=== PATIENT | female | born 1950 | race Caucasian/White ===

== ENCOUNTER → 2018-06-06 | Outpatient (CLI) | payer OTHER ==
[~2018-06-06] MED LIST: ASPI81TA28 PO; BIOT1CAP8 PO; CARV20CA PO; CRFL PO; GLC/500 PO; GLIM2TAB2 PO; HYDR12.55 PO; INSUINJ4 SQ; NXM/40 PO; OMEG10007 PO; [UNRECOGNIZED DRUG - OTHER] PO
--- NOTE | 2018-06-06 12:13 | DIAGNOSTIC IMAGING REPORT ---
ULTRASOUND RIGHT UPPER QUADRANT ABDOMEN CLINICAL HISTORY: Nausea. Generalized abdominal pain. History of stage IV ovarian cancer. COMPARISON STUDY: Abdominal CT dated 12/17/2015. TECHNIQUE: Real-time, grayscale, and color flow sonography of the right upper quadrant of the abdomen was performed. Images are reviewed in the transverse and longitudinal planes. FINDINGS: Liver: The liver is normal in size and heterogeneous in echotexture. There is nodularity of the hepatic surface contour indicating early change of cirrhosis. There is no intrahepatic biliary ductal dilatation. The main portal vein is patent. Gallbladder: There are numerous shadowing calcified gallstones. There is no gallbladder wall thickening or pericholecystic fluid. A sonographic Huertas's sign is reportedly absent. The common bile duct measures up to 0.9 cm in diameter. Pancreas: Visualized portions of the pancreatic head and body are normal in appearance. The splenic vein is patent. Right kidney: Survey images of the right kidney demonstrate mild cortical atrophy. There is no hydronephrosis. Ascites: None. IMPRESSION: 1. Cholelithiasis without sonographic evidence of acute cholecystitis. 2. Cirrhotic liver morphology. Electronically signed by: Suraj Beltre M.D. 06/06/2018 12:12 PM Dictated Date/Time: 06/06/2018 12:10 PM
== END | disposition home or self-care (01) ==
LOC: C.ULTR 11:06
PROVIDERS: ATTEND Surgery
DX: R11.0 Nausea (principal); R10.9 Unspecified abdominal pain

== ENCOUNTER 2018-12-04 01:45 | Inpatient (IN) ==
[2018-12-04] MEDS ORDERED: ICU ELECTROLYTE REPLACEMENT PROTOCOL PRN (10:23)
[2018-12-04] MEDS ORDERED: ICU PROTOCOL FOR HYPERGLYCEMIA PRN (10:23)
[2018-12-04] MEDS ORDERED: VANCOMYCIN CONSULT ACTIVE PRN (10:27)
[2018-12-04] MEDS ORDERED: PIPERACILL/TAZOBAC CONSULT ACTIVE PRN (10:27)
[2018-12-04 11:13] LABS: Albumin Level 1.9 gm/dl (3.4-5.0); BUN Creatinine Ratio 16.1 (10-20); Creatinine Clr Calc Pharmacy 34.1 ml/min; Est GFR (African American) 38.9; Est GFR (Non-African American) 33.5; Magnesium 1.3 mg/dl (1.8-2.4); Potassium 3.1 mmol/L (3.5-5.1)
[2018-12-04] MEDS ORDERED: VANCOMYCIN HCL 1,250 MG in SODIUM CHLORIDE 0.9% 250 ML IV ONE (11:15)
[2018-12-04] MEDS ORDERED: PIPERACILLIN/TAZOBACTAM 4.5 GM in DEXTROSE 5% 100 ML IV ONE (11:15)
[2018-12-04 11:21] LABS: Albumin Globulin Ratio 0.6 (0.9-2); Bilirubin,Total 1.6 mg/dl (0.2-1); Globulin 3.3 gm/dl (2.5-4.0); Hematocrit (blood only) 26.6 % (37-47); Hemoglobin 8.9 g/dL (12.0-16.0); Mean Corpuscular Hgb Conc 33.5 g/dL (32-36); Mean Corpuscular Volume 89.9 fL (80-100); Platelet Count 11 K/uL (130-400); RDW Coefficient of Variation 17.1 % (11.5-14.5); RDW Standard Deviation 56.5 fL (36.4-46.3); Red Blood Count 2.96 M/uL (4.2-5.4); Total Protein 5.2 gm/dl (6.4-8.2); Troponin I 0.049 ng/ml (0-0.045); White Blood Count 0.64 K/uL (4.8-10.8)
[2018-12-04] MEDS: NSS + 20MEQ KCL 20 MEQ/1,000 ML BAG IV SCH ×2 (11:40→21:09)
[2018-12-04] MEDS ORDERED: SODIUM CHLORIDE 0.9% 500 ML IV SCH (11:45)
[2018-12-04] MEDS ORDERED: POTASSIUM CHLORIDE 20 MEQ TABCR PO STA (11:52)
[2018-12-04] MEDS ORDERED: POTASSIUM CHLORIDE 20 MEQ TABCR PO SCH (11:52)
--- NOTE | 2018-12-04 11:55 | Critical Care Consultation ---
Date of Consultation December 04, 2018 Assessment & Plan (1) Ovarian cancer: Impression: 1. Advanced stage ovarian cancer, rising CEA noted. Status post chemotherapy with carboplatin, Taxol and Avastin every 3 weeks. 2. Pancytopenia with febrile neutropenia. 3. Profound thrombocytopenia secondary to chemotherapy. 4. Acute on chronic kidney disease. 5. Non-ST elevation [place] related to sepsis. 6. Sepsis, etiology is pending, blood cultures are positive for gram-positive cocci. 7. Diabetes, on metformin and glimepiride at home. Both on hold. 8. History of hypertension. 9. History of pacemaker placement, Port-A-Cath in the left subclavian. 10. Diarrhea, could be related to activated C. difficile versus chemo induced enteropathy. Plan: 1. I will start the patient on vancomycin and Zosyn. 2. I would consider adding caspofungin if she continued to have fever. 3. IV fluid. 4. Start Neupogen 480 mics subcu daily. 5. Oncology consult. 6. Obtain echocardiogram considering the patient's cardiac history and a pacemaker in place. 7. Obtain C. difficile antigen. 8. Possible diarrhea secondary to enteropathy. 9. The patient remains full code. 10. Discontinue home aspirin. 11. Type and cross the patient, no transfusion for now. 12. Repeat the labs in the afternoon. 13. If the patient platelets continue to drift down, I will transfuse her empirically. 15. Glucose control. 16. Clear liquid diet if possible. 17. No need for pressors at this point. 18. Replete all electrolytes. 19. Discussed with the staff on rounds, critical care time spent with the patient was 60 minutes. 3. History of Present Illness Reason for Consultation: Febrile neutropenia Requesting Physician: Dr. Jimenez Attending Physician: Scot Jimenez MD History of Present Illness Dear Dr. Jimenez: Thank you for your kind referral of Mrs. Mejia to critical care service. This is 68-year-old female with a history of ovarian cancer status post oophorectomy 10 years ago, recently has been diagnosed with recurrence of ovarian cancer and started on chemotherapy, she has been getting the chemotherapy every 3 weeks with carboplatin, Taxol, Avastin. Most recent chemotherapy was this week. The patient presented after she received the chemotherapy with weakness, fever and altered mental status to MARLEN[facility] Calvin. The patient was found to be neutropenic, pancultured and started empirically on broad-spectrum antibiotics, the patient blood pressure has been maintained although she has been receiving fluid, she was transferred to our institution for further management. When I interviewed the patient, she denies any pain, she appears chronically ill , pale, denies any chest pain, no shortness of breath, no cough or hemoptysis, she does have bloodstained secretions in her mouth. She denies any constipation but she did have diarrhea approximately 6 times reported by the nursing staff as watery. Nonbloody. No new rash, no skin changes noted, the patient does have mild edema in 4 extremities., No abdominal pain no nausea or vomiting reported. No loss of consciousness. The rest of her review of system was unremarkable. Her family history does not contribute to her current illness. 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 Patient is ex-smoker quit over 10 years ago. Allergies Allergy/AdvReac Type Severity Reaction Status Date / Time cefaclor AdvReac Mild Yeast Verified 07/16/18 05:59 Infection pioglitazone AdvReac Mild Leg Verified 07/16/18 05:59 Swelling rosiglitazone AdvReac Mild Leg Verified 07/16/18 05:59 Swelling shrimp AdvReac Mild NAUSEA/VOMI Verified 07/16/18 05:59 TING Home Medications Home Medications Medication Instructions Recorded Confirmed Type aspirin 81 mg PO QAM 07/07/18 07/16/18 History atorvastatin 20 mg PO HS 07/07/18 07/16/18 History calcium carbonate-vitamin D3 1 tab PO QAM 07/07/18 07/16/18 History [Os-Ilia 500 + D3] carvedilol 3.125 mg PO BID 07/07/18 07/16/18 History cholecalciferol (vitamin D3) 1,000 unit PO QPM 07/07/18 07/16/18 History [Vitamin D3] estradiol [Vagifem] 10 mcg VAGINAL 2XWK 07/07/18 07/16/18 History fish,bora,flax oils-om3,6,9no1 1 cap PO QAM 07/07/18 07/16/18 History [[place] 3-6-9] furosemide 40 mg PO UD 07/07/18 07/16/18 History glimepiride 2 mg PO HS 07/07/18 07/16/18 History iron,carbonyl-vitamin C [Vitron-C] 1 tab PO DAILY 07/07/18 07/16/18 History lactobacillus combination no.4 3,000 mmu cells PO DAILY 07/07/18 07/16/18 History [Probiotic] lisinopril 10 mg PO QAM 07/07/18 07/16/18 History metformin 1,000 mg PO BID 07/07/18 07/16/18 History omeprazole 40 mg PO QPM 07/07/18 07/16/18 History Tylenol See Label Instructions .ROUTE 07/16/18 07/16/18 History .COMPLEX PRN Patient History Medical History Anxiety Cancer DX 2004 W/ OVARIAN CA - S/P GREGG BSO - 2014 CA TO LT SUPRACLAVICULAR LYMPH NODE - S/P CHEMO - DX 05/2018 - RETURN TO LYMPH NODES (WILL BE TREATED W/ CHEMO) Cholelithiases Congestive heart failure chronic diastolic Diabetes mellitus, type 2 GERD (gastroesophageal reflux disease) Hiatal hernia Hyperlipidemia Hypertension Nonrheumatic aortic (valve) stenosis Noted in cardio note...but normal trileaflet aortic valve noted on 11/2016 [place]. Osteoarthritis Pacemaker BRADYCARDIA - 04/2017 - LAST CHECKED 06/18/18 - [place] - FOLLOWS W/ DR. SMALLS Valvular disease Moderate mitral regurg, mild-moderate tricuspid regurg. Surgical History History of bilateral tubal ligation History of cardiac cath 10/2014 - [place] - ABN STRESS TEST - NO ANGIOPLASTY/STENT History of carpal tunnel release of both wrists History of herniorrhaphy S/P GREGG-BSO Social History Current Living Situation: Spouse Feels Safe at Home: Yes Smoking Status: Former smoker Second Hand Exposure: Yes Hx Alcohol Use: No Hx Substance Use: No Beliefs That Will Affect Care: None Preferred Language: Hungarian Communication Ability: Effective Review of Systems 14 systems has been reviewed, apart from the above in the first section, it was unremarkable. Physical Exam 2 Vital Signs (Past 24 Hours): Last Vital Signs Temp 37.7 C H 12/04/18 08:56 Pulse 86 12/04/18 10:30 Resp 20 12/04/18 08:56 BP 115/66 12/04/18 10:00 Pulse Ox 97 12/04/18 10:30 Physical Exam: The patient had a fever 102.3, her blood pressure was soft and borderline but did not require any pressors, trachea is midline, blood tinged secretions in her lips, oral mucosa appears dry, no JVD, distant breath sounds bilaterally, abdomen is benign, edema in the periphery, no rash, neurologically she does not seem to be focal but slow to response. Results & Data Laboratory Results Her laboratories were consistent with aguilar cytopenia, BUN and creatinine slightly elevated, positive troponin likely secondary to above, cultures are still pending. Diagnostic Findings Imaging were reviewed since June, personally, she does have lymphadenopathy , pacemaker in place, small pleural effusion on the right, multiple nodularity in the apices of the lung.
[2018-12-04 12:03] LABS: ALC (manual) 0.52 K/uL (1.2-3.4); Basophils # (manual) 0.01 K/uL (0-0.2); Eosinophils # (manual) 0.01 K/uL (0-0.5); Giant Platelets 3+; Lymphocytes # (manual) 0.52 K/uL (1.2-3.4); Monocytes # (manual) 0.04 K/uL (0.11-0.59); Smudge Cells Present; Toxic Granulation 1+
--- NOTE | 2018-12-04 13:37 | Pharmacy Report ---
Pharmacy Abx Dose Short Note - Date of Service December 04, 2018 - Assessment & Plan Assessment * 68 year old F transferred from [facility] due to fever, MS changes, dehydration due to NVD, febrile neutropenia * Pt has h/o ovarian cancer, was chemo treatment 11/26 (carboplatin, paclitaxel, bevacizumab) * Neutrophil cnt: 60 * HANS present on labs and appears to have worsened over last 24 hrs (SCr 1.3 -- > 1.57); eCrCl 30-40cc/min; baseline SCr uncertain * MAP's 70's earlier, but now in 50's via NIBP, SBP 80's * Fluid resuscitation continues at this time * [facility] BLCX's reported to be growing gram positive bacilli in anaerobic cx * C diff screen negative * Port-A-cath in place Plan Vancomycin * 1000mg given prior to transfer, however was given 12/03 @ 1912 - calc serum level most certainly < 15 at this time - will begin maint dose now * Maint dose: 1250mg (~15mg/kg) IV Q 24 hrs * Goal trough level for sepsis / bacteremia : 15 to 20 mcg/mL * Will check trough w/ 3rd dose if therapy to continue Zosyn * Last dose: 4.5gm x 1 12/03 @2107 * eCrCl > 20cc/min; BMI > 35; critical illness: 4.5gm load x 1, then begin 4.5gm ext-infusion Q 8 hrs Pharmacy will continue to follow and will adjust dose/frequency as necessary. Thank you.
[2018-12-04] MEDS: MAGNESIUM SULFATE / D5W 1 GM/100 ML BAG IV SCH ×2 (15:21→17:20)
[2018-12-04] MEDS: FILGRASTIM 480 MCG/1.6 ML VIAL SC SCH (15:43)
[2018-12-04] MEDS: PIPERACILLIN/TAZOBACTAM 4.5 GM in DEXTROSE 5% 100 ML IV SCH ×2 (15:49→23:22)
--- NOTE | 2018-12-04 17:15 | History & Physical Report ---
Date of Service December 04, 2018 Assessment & Plan (1) Febrile neutropenia: This chemotherapy associated febrile neutropenia. Patient was initiated on vancomycin and Zosyn these will be continued. Because of patient's diarrhea C. difficile test will be collected initially her blood pressure was low her lactic acid was not significantly elevated the patient will be continued on neutropenic precautions antibiotics to be administered (2) Pancytopenia: Hemotherapy associated pancytopenia. Platelet count is at 16. The patient has any significant bleeding that continues we will transfuse platelets. Consideration of rescuing her bone marrow if discussion needed will consult Dr. Bang (3) Diabetes mellitus, type 2: Patient will be on the ICU diabetic protocol we will hold her typical glimepiride metformin (4) Hypertension: Patient has some history of coronary disease she is typically on aspirin atorvastatin Coreg and Lasix plus lisinopril 10 these were all held (5) Diarrhea: As mentioned patient is volume loss of the diarrhea will have a C. difficile toxin sent we will employ intravenous fluid hydration continue potassium due to hyper hypokalemia present on admission (6) DVT prophylaxis: Chemoprophylaxis is contraindicated with the patient's thrombocytopenia likely external device may promote bruising History of Present Illness Primary Care Provider: Rell Carballo Capp, DO Patient is transferred from [facility]. The patient is a 60-year-old female has metastatic ovarian cancer. She is receiving chemotherapy of Doxil plan carboplatin and Avastin. Her last chemotherapy was 413. The patient presents at [facility] with a febrile illness and encephalopathy. She was initially stabilized in the emergency department given vancomycin and Zosyn. She did have a imaging of her chest showing bilateral apical masses which look to be progressive from previous imaging at their facility. She is pancytopenic with a white count of 0.4 and a platelet count of 16 been hemoglobin of 10 she is hypokalemic mild elevation of her bilirubin Upon arrival she is in mild distress she is having liquidy diarrhea she has a large clot on her lip no active bleeding was seen Allergies Allergy/AdvReac Type Severity Reaction Status Date / Time cefaclor AdvReac Mild Yeast Verified 07/16/18 05:59 Infection pioglitazone AdvReac Mild Leg Verified 07/16/18 05:59 Swelling rosiglitazone AdvReac Mild Leg Verified 07/16/18 05:59 Swelling shrimp AdvReac Mild NAUSEA/VOMI Verified 07/16/18 05:59 TING Home Medications Home Medications Medication Instructions Recorded Confirmed Type aspirin 81 mg PO QAM 07/07/18 07/16/18 History atorvastatin 20 mg PO HS 07/07/18 07/16/18 History calcium carbonate-vitamin D3 1 tab PO QAM 07/07/18 07/16/18 History [Os-Ilia 500 + D3] carvedilol 3.125 mg PO BID 07/07/18 07/16/18 History cholecalciferol (vitamin D3) 1,000 unit PO QPM 07/07/18 07/16/18 History [Vitamin D3] estradiol [Vagifem] 10 mcg VAGINAL 2XWK 07/07/18 07/16/18 History fish,bora,flax oils-om3,6,9no1 1 cap PO QAM 07/07/18 07/16/18 History [[place] 3-6-9] furosemide 40 mg PO UD 07/07/18 07/16/18 History glimepiride 2 mg PO HS 07/07/18 07/16/18 History iron,carbonyl-vitamin C [Vitron-C] 1 tab PO DAILY 07/07/18 07/16/18 History lactobacillus combination no.4 3,000 mmu cells PO DAILY 07/07/18 07/16/18 History [Probiotic] lisinopril 10 mg PO QAM 07/07/18 07/16/18 History metformin 1,000 mg PO BID 07/07/18 07/16/18 History omeprazole 40 mg PO QPM 07/07/18 07/16/18 History Tylenol See Label Instructions .ROUTE 07/16/18 07/16/18 History .COMPLEX PRN Past Med/Surg History Social History Current Living Situation: Spouse Feels Safe at Home: Yes Smoking Status: Former smoker Second Hand Exposure: Yes Hx Alcohol Use: No Hx Substance Use: No Beliefs That Will Affect Care: None Preferred Language: [place] Citizen Communication Ability: Effective Review of Systems ROS: Alopecic and fatigued No double vision blurry vision Painful mouth painful swallowing No palpitations, chest pain or pressure No Wheezing dyspnea at rest on exertion No abdominal pain nausea vomiting, persistent diarrhea No burning urine urine frequency or changes in color No focal joint pain or muscle pain No skin rashes she has a scab on her gums and lips from some bleeding previouslyr loss of strength Was confused on presentation Physical Exam 2 Vital Signs (Past 24 Hours): Last Vital Signs Temp 36.9 C 12/04/18 16:00 Pulse 77 12/04/18 16:00 Resp 20 12/04/18 08:56 BP 105/61 12/04/18 16:00 Pulse Ox 97 12/04/18 16:00 The patient appeared she has alopecia she is pale she is confused Vital signs as documented. Head exam is unremarkable. normocephalic, atraumatic Oropharynx with signs of gingival bleeding which is controlled Neck is without jugular venous distension, thyromegaly, or lymphademopathy Lungs are coarse breath sounds at the bases Cardiac exam reveals Rhythm is regular. Systolic ejection murmur Abdominal exam reveals normal bowel sounds, no masses, no organomegaly Extremities are mildly edematous and both pedal pulses are present Neurologic exam is A&Ox2, no focal deficits, strength is equal bilateral
[2018-12-04] MEDS: PANTOprazole 40 MG TAB PO SCH (21:08)
[2018-12-05 04:42] LABS: BUN Creatinine Ratio 14.8 (10-20); Calcium 7.8 mg/dl (8.5-10.1); Creatinine Clr Calc Pharmacy 35.9 ml/min; Est GFR (African American) 41.4; Est GFR (Non-African American) 35.7; Magnesium 1.9 mg/dl (1.8-2.4); Potassium 3.5 mmol/L (3.5-5.1)
[2018-12-05 05:32] LABS: Hematocrit (blood only) 26.9 % (37-47); Hemoglobin 8.8 g/dL (12.0-16.0); Mean Corpuscular Hgb Conc 32.7 g/dL (32-36); Mean Corpuscular Volume 90.9 fL (80-100); Platelet Count 14 K/uL (130-400); RDW Standard Deviation 56.6 fL (36.4-46.3); Red Blood Count 2.96 M/uL (4.2-5.4); White Blood Count 1.61 K/uL (4.8-10.8)
[2018-12-05] MEDS ORDERED: DEXTROSE 50% 50 ML SYRINGE IV ONE (05:40)
[2018-12-05 05:44] LABS: Basophils # (auto) 0.01 K/uL (0-0.2); Basophils % (auto) 0.6 %; Eosinophils # (auto) 0.01 K/uL (0-0.5); Eosinophils % (auto) 0.6 %; Lymphocytes # (auto) 0.51 K/uL (1.2-3.4); Lymphocytes % (auto) 31.7 %; Monocytes % (auto) 24.8 %; Neutrophils # (auto) 0.68 K/uL (1.4-6.5); Neutrophils % (auto) 42.3 %
[2018-12-05 05:49] LABS: Giant Platelets 1+; Ovalocytes 1+; Platelet Estimate SIGNIFIC DECREASED (Normal); Toxic Granulation 1+
[2018-12-05] MEDS: NSS + 20MEQ KCL 20 MEQ/1,000 ML BAG IV SCH ×2 (08:07→18:24)
[2018-12-05] MEDS: PIPERACILLIN/TAZOBACTAM 4.5 GM in DEXTROSE 5% 100 ML IV SCH (08:08)
[2018-12-05] MEDS: FILGRASTIM 480 MCG/1.6 ML VIAL SC SCH (08:08)
[2018-12-05] MEDS: PANTOprazole 40 MG TAB PO SCH ×2 (08:39→21:04)
--- NOTE | 2018-12-05 10:35 | Consultation Report ---
DATE OF CONSULTATION: 12/05/2018 MEDICAL ONCOLOGY CONSULTATION REASON FOR CONSULTATION: Neutropenic fever in this pleasant 68-year-old female patient with metastatic ovarian cancer. HISTORY OF PRESENT ILLNESS: The patient is a pleasant, but unfortunate 68-year-old female patient well known to [facility] under my care for metastatic ovarian cancer. The patient has been receiving combination of Doxil, carboplatin and Avastin and was in the midst of her fourth cycle that she received back on 11/26/2018. At that time, her counts were below normal; however, certainly not at a critical point requiring a delay. Her doses have been adjusted across the board throughout her course of chemotherapy because of poor tolerance. She was last seen by WILI Landrum, on 11/05/2018, at which time she was poised to begin her fourth cycle which was delayed until today because of chemotherapy and tolerance (anorexia, asthenia, dyschezia, and stomatitis) warranting a break from treatment. We had also recommended 25% dose reduction in the paclitaxel and reduced her carboplatin from an AUC of 5 to an AUC of 4. At this time, she felt recovered enough to receive her treatment which took place. Unfortunately, radiographic studies done at [facility] suggest disease progression. Her CA-125 has also risen precipitously and therefore need to consider a change in therapy when the patient recovers. Right now, she is currently suffering from severe mucositis and is receiving broad spectrum antibiotics for a suspected bacteremia. Blood cultures are pending at time of dictation. I did briefly speak to the race relations adviser, who updated me on the patient's care. PAST MEDICAL HISTORY: Significant for metastatic ovarian cancer. HOME MEDICATIONS: Aspirin 81 mg p.o. daily, atorvastatin 20 mg p.o. at bedtime, calcium carbonate with vitamin D 1 tablet p.o. daily, carvedilol 3.125 mg p.o. b.i.d., cholecalciferol 1000 units p.o. q.p.m., estradiol vaginal cream 10 mcg applied twice weekly, furosemide 40 mg p.o. daily, ____ 2 mg p.o. at bedtime, lactobacillus 3000 ____ p.o. daily, lisinopril 10 mg p.o. daily, metformin 1000 mg p.o. b.i.d., omeprazole 40 mg p.o. daily, iron tablet 1 p.o. daily, Tylenol as needed. ALLERGIES: ____, PIOGLITAZONE, ROSIGLITAZONE AND SHRIMP. SOCIAL HISTORY: The patient is retired, , lives with her . She is a reformed smoker. Negative for alcohol or illicit drugs. FAMILY HISTORY: Noncontributory. REVIEW OF SYSTEMS: As per HPI, most notably for decline in performance status, fevers, chills, stomatitis. HEENT: Negative for headaches, lightheadedness or dizziness. She denies any acute visual or hearing deficits. No sinus symptoms. Positive for sore throat and stomatitis. NECK/LYMPH: No history of lymphoproliferative disease. CARDIAC: No current angina or palpitations. PULMONARY: She is not short of breath, dyspneic or orthopneic. She is receiving supplemental oxygen. GASTROINTESTINAL: Denies current nausea. No abdominal pain, no diarrhea or constipation, hematochezia or melena stools. GENITOURINARY: No hematuria, dysuria, urinary incontinence. PSYCHIATRIC: No history of depression or psychoses. ENDOCRINE: Negative for thyroid disease. Positive for type 2 diabetes mellitus. NEUROLOGIC: Negative for seizure, stroke or migraine headache. HEMATOLOGIC: Positive for pancytopenia. PHYSICAL EXAMINATION: GENERAL: Ill-appearing 68-year-old female patient, in no acute distress. VITAL SIGNS: Temperature 36.4, pulse 76, respiratory rate 18, blood pressure 91/59. SKIN: Warm, dry, noncyanotic without petechia, rash or ecchymosis. HEENT: Head is atraumatic. Positive for alopecia. Normocephalic. Eyes: PERRLA, EOMI. Sclerae nonicteric. Nares are patent. Throat: White streaks intermixed with erythema, consistent with mucositis. NECK: Supple. HEART: Regular rate and rhythm. No clicks, rubs, murmurs or gallops. LUNGS: Clear to auscultation bilaterally. ABDOMEN: Soft, nontender, nondistended without palpable hepatosplenomegaly. EXTREMITIES: No calf tenderness or swelling. Pneumatics in place. NEUROLOGICAL: She is awake, alert and oriented x3. Cranial nerves are intact. LABORATORY DATA: WBC count 1610, hemoglobin 8.8, platelet count 14,000, neutrophil count 680. Sodium 141, potassium 3.5, chloride 108, carbon dioxide 25, BUN 22, creatinine 1.49, albumin 1.9, precalcitonin 10.15. IMPRESSION: 1. Neutropenic fever. 2. Pancytopenia attributable to chemotherapeutic effect. 3. Hypoalbuminemia. 4. Type 2 diabetes mellitus. 5. Metastatic ovarian cancer. PLAN: The patient is a very pleasant 68-year-old female patient well known to [facility] battling end-stage metastatic ovarian cancer. The patient continues to receive carboplatin, paclitaxel and Avastin. She has completed her fourth cycle recently, which was delayed because of difficulties. Despite dose reductions, the patient continues to have problems and radiographically, it would appear she is progressing which is also corroborated by increasing CA-125. Therefore, we will suspend her current regimen for ineffectiveness and poor tolerance. Once the patient recovers, we will reconvene as outpatient and discuss therapeutic options moving forward. I have nothing to add in regards to her current management other than continuing transfusional support. If platelets fall below 15,000, proceed with single donor pheresis. Provide granulocyte colony stimulating growth factor, perhaps Neupogen 480 mcg x1 dose. Agree with current antimicrobial therapy and we will wait for sensitivities. Mucositis can be treated locally with local compounds as well as low dose opioids per the patient's comfort. Thank you very much for allowing me to participate in her care and I plan to reengage with the patient and her upon discharge. MTDD
--- NOTE | 2018-12-05 11:07 | Critical Care Progress Note ---
Date of Service December 05, 2018 Assessment & Plan (1) Ovarian cancer: Impression: 1. Advanced stage ovarian cancer, rising CEA noted. Status post chemotherapy with carboplatin, Taxol and Avastin every 3 weeks. 2. Pancytopenia with febrile neutropenia. 3. Profound thrombocytopenia, status post chemotherapy. 4. Acute on chronic kidney disease. 5. Non-ST elevation [facility] related to sepsis. 6. Sepsis, etiology is pending, blood cultures are gram-negative josephine and urine culture with Enterococcus faecalis. 7. Diabetes, on oral hypoglycemic agents, on hold, now covered with insulin. 8. History of hypertension. 9. History of pacemaker placement, Port-A-Cath in the left subclavian. 10. Diarrhea, could be related to activated C. difficile versus chemo induced enteropathy. Plan: 1. I will change Zosyn to imipenem to cover for possible ESBL in this patient until the gram-negative josephine been identified. 2. Apparently 2 cultures has been done sequentially 1 from the Port-A-Cath and the other from blood. Both are growing gram-negative josephine. I am concerned about a line sepsis especially with the presence of a pacemaker next to the Port -A-Cath. I will obtain repeat blood culture in the morning. 3. I will continue with vancomycin until cultures been finalized. 4. Continue Neupogen 480 mics subcu daily until ANC above than 1500. 5. Oncology consult appreciated. 6. In review of her echocardiogram, her EF was 70%, it did not show any signs of vegetations on the valves, otherwise it could be reported. 7. C. difficile antigen B is negative. 8. Start the patient on Magic mouthwash due to stomatitis and pharyngitis likely from leukopenia. 9. The patient remains full code. 10. Keep home aspirin on hold. 11. Type and cross the patient, no transfusion for now. 12. No blood transfusion or blood product transfusion at this point. 13. I will transfuse platelets if it is less than 10. 15. Glucose control using insulin.. 16. Start oral intake. 17. The patient did not require any pressors. 18. Replete all electrolytes. 19. Attention to be paid for persistent blood cultures if occurred, the patient had positive blood cultures from the Port-A-Cath, she does have also a pacer wire next to it. No evidence of endocarditis. 20. Discussed with multiple disciplines, discussed with the staff, discussed the patient on rounds. 21. Transfer the patient to regular floor, appreciate Dr. Jimenez acceptance of this case. Critical care time spent with the patient was 45 minutes. Subjective The patient is clinically stable, did not have any events overnight, she continued to have ulceration in the hard palate mucosa as well as the lips. Denies any pain or nausea, she continued to have diarrhea according to her and is watery. She started on colony-stimulating factors, her bone marrow is recovering slowly. ANC remains above than 600 but less than 1000. Blood cultures returned positive for the gram-negative josephine. Physical Exam 2 Vital Signs (Past 24 Hours): Last Vital Signs Temp 36.4 C L 12/05/18 08:00 Pulse 74 12/05/18 09:15 Resp 15 12/05/18 09:15 BP 114/71 12/05/18 09:15 Pulse Ox 96 12/05/18 09:15 Physical Exam: No fever today, in fact she did have an episode of hypothermia reported. Blood pressure has been maintained without the need for any pressors. S1-S2 not tachycardic. The site of the Port-A-Cath does not appear erythematous. Lungs are clear, abdomen is obese but benign, edema in the periphery noted. Neurologically she is intact. Multiple areas in her lips and the floor of her mouth appeared to be ulcerated. No skin rash. Results & Data Laboratory Results Labs are consistent with ANC of 600. BUN and creatinine are slightly elevated. Blood cultures were positive for gram-negative josephine. Urine also showed enterococcus faecalis. These data are obtained from cultures from the other institution. Diagnostic Findings No new imaging.
[2018-12-05] MEDS ORDERED: IMIPENEM/CILASTATIN CONSULT ACTIVE PRN (11:10)
[2018-12-05] MEDS ORDERED: MAGNESIUM SULFATE / D5W 1 GM/100 ML BAG IV SCH (11:15)
--- NOTE | 2018-12-05 11:19 | Pharmacy Report ---
Pharmacy Abx Dose Short Note - Date of Service December 05, 2018 - Assessment & Plan Assessment * 68 year old F transferred from [facility] due to fever, MS changes, dehydration due to NVD, febrile neutropenia * Pt has h/o ovarian cancer, was chemo treatment 11/26 (carboplatin, paclitaxel, bevacizumab) - diarrhea may be in part due to paclitaxel * Neutrophil cnt improvin --> 680 (receiving filgrastim); Tmax 37.7 last 24 hrs * HANS present on labs slightly improved today (SCr 1.3 --> 1.57--> 1.49); eCrCl 30-40cc/min; baseline SCr uncertain * MAP's in 70s * [facility] BLCX's initially reported to be growing gram positive bacilli in anaerobic cx, this report has been corrected. Blood cx from port is growing gram negative rods. Peripheral BLCX is also growing gram negative rods. Urine Cx is growing 80,000CFU enterococcus faecalis resistant TCNs but sens to all others tested * C diff screen negative * Port-A-cath in place - severe thrombocytopenia continues Plan Vancomycin * 1000mg given prior to transfer, however was given 12/03 @ 1912 - calc serum level most certainly < 15 at this time - will begin maint dose now * Maint dose: 1250mg (~15mg/kg) IV Q 24 hrs * Goal trough level for sepsis / bacteremia : 15 to 20 mcg/mL * Will check trough level w/ 3rd maint dose - may be able to d/c vancomycin based upon cx results. Time Clerk prefers to cont for next 24 hrs until BLCX organism ID'd. Primaxin * Zosyn d/c'd, carbapenem ordered due to concern for ESBL coverage * for CrCl 30-60cc/min, 500mg IV Q 8 hrs recommended - if cultured organism is only intermediate sensitivity therapy, dose may be increased to 500mg IV Q 6 hrs - however alternative therapy would be preferred based upon reported sensitivities if possible. Pharmacy will continue to follow and will adjust dose/frequency as necessary. Thank you. Pharmacy will continue to follow and will adjust dose/frequency as necessary. Thank you.
[2018-12-05] MEDS: POTASSIUM CHLORIDE / WTR 10 MEQ/100 ML PLCT IV SCH ×4 (11:56→15:11)
[2018-12-05] MEDS: IMIPENEM/CILASTATIN SODIUM 500 MG in DEXTROSE 5% 100 ML IV SCH ×2 (12:01→19:52)
[2018-12-05] MEDS: ALUMINUM/MAGNESIUM SUSP 50 ML, DiphenhydrAMINE Syrup 125 MG, LIDOCAINE HCL 2% VISCOUS 4... PO SCH ×3 (12:02→21:04)
--- NOTE | 2018-12-05 12:42 | Hospitalist Progress Note ---
Date of Service December 05, 2018 Assessment & Plan (1) Febrile neutropenia: This chemotherapy associated febrile neutropenia. vancomycin and Zosyn will be continued as the patient is now afebrile because of patient's diarrhea C. difficile test was performed and is negative neutropenic precautions the patient did receive Neupogen (2) Pancytopenia: cHemotherapy associated pancytopenia. Platelet count is at 14. Patient being followed by oncology (3) Diabetes mellitus, type 2: Pharmacy managed diabetic protocol we will hold her typical glimepiride metformin (4) Hypertension: Patient has some history of coronary disease she is typically on aspirin atorvastatin Coreg and Lasix plus lisinopril these will remain held and if we re -begin these medications possibly targeting Coreg as first 1 at back (5) Diarrhea: As mentioned patient is volume loss of the diarrhea diarrhea persist likely related to chemotherapy continue to hydrate (6) DVT prophylaxis: Chemoprophylaxis is contraindicated with the patient's thrombocytopenia likely external device may promote bruising Subjective Patient patient feels somewhat improved she still having significant mucosal irritation and some bleeding her platelet count is 14 she has had no further fevers since being institute on antibiotics she was given bone marrow stimulating medication to try to rescue her bone marrow from her chemotherapeutic suppression Review of Systems ROS: Irritation of gums and buccal mucosa bleeding No double vision blurry vision No problems with speech or swallowing No palpitations, chest pain or pressure No Wheezing or breathing issues some nonproductive coughing No abdominal pain nausea vomiting diarrhea changes in appetite or weight No burning urine urine frequency or changes in color No focal joint pain or muscle pain No focused back pain or numbness or loss of strength No changes in memory or confusion Physical Exam 2 Vital Signs (Past 24 Hours): Last Vital Signs Temp 36.4 C L 12/05/18 08:00 Pulse 74 12/05/18 09:15 Resp 15 12/05/18 09:15 BP 114/71 12/05/18 09:15 Pulse Ox 96 12/05/18 09:15 the patient appeared moderately distressed has alopecia Vital signs as documented. Head exam is unremarkable. normocephalic, atraumatic has some bruising and bleeding to her gums initially anteriorly in the lower mandible Neck is without jugular venous distension, thyromegaly, or lymphademopathy Lungs are diminished at the bases with some mild rhonchi Cardiac exam reveals irregularly irregular Abdominal exam reveals normal bowel sounds, no masses, no organomegaly still producing diarrhea Extremities are nonedematous and both pedal pulses are present Neurologic exam is A&Ox3, no focal deficits, strength is reduced globally Psychologically seems both anxious and depressed Skin is warm Dry without bruises or lesions
[2018-12-05] MEDS: VANCOMYCIN HCL 1,250 MG in SODIUM CHLORIDE 0.9% 250 ML IV SCH (12:49)
[2018-12-05] MEDS ORDERED: VANCOMYCIN HCL 1,250 MG in SODIUM CHLORIDE 0.9% 250 ML IV SCH (13:00)
[2018-12-05] MEDS ORDERED: PHARMACY GLYCEMIC MGMT CONSULT SCH (14:35)
[2018-12-05] MEDS ORDERED: CARBOHYDRATES FOR HYPOGLYCEMIA PO PRN (14:38)
[2018-12-05] MEDS ORDERED: GLUCOSE 40% GEL 15 GM TUBE PO PRN (14:38)
[2018-12-05] MEDS ORDERED: GLUCOSE 10 TABS/TUBE PO PRN (14:38)
[2018-12-05] MEDS ORDERED: GLUCAGON FOR INJ 1 MG VIAL SQ PRN (14:38)
[2018-12-05] MEDS ORDERED: DEXTROSE 50% 50 ML SYRINGE IV PRN (14:38)
--- NOTE | 2018-12-05 14:57 | Pharmacy Report ---
Glycemic Control Consultation - Date of Service December 05, 2018 - Scope Scope: Glycemic Pharmacist consulted by Dr Jimenez on 12/05/18 for glycemic control and to write orders per [facility] inpatient glycemic control protocol - Objective Weight: 89.4 kg Accuchecks BSG (last 24hrs): 12/04/18 12/04/18 12/05/18 17:51 23:29 03:53 Glucose 66 L POC Glucose 85 75 12/05/18 12/05/18 12/05/18 05:34 05:37 06:05 Glucose POC Glucose 63 L* 63 L* 164 H Laboratory Data (last 24hrs): 12/05/18 03:53 Potassium 3.5 Carbon Dioxide 25 Anion Gap 8.0 Creatinine 1.49 H Est Cr Clr Drug Dosing 35.9 - Recent Pertinent Medications Outpatient Anti-diabetic Regimen: * Glimepiride 2mg PO HS * Metformin 1000mg PO BID * A1c ordered Risk Factors for Insulin Resistance: * Infection: IV Imipenem & Vancomycin * Diet: Full Liquid - Assessment & Plan Assessment & Plan: ASSESSMENT: * 68 year old admitted from [facility] with febrile neutropenia on IV antibiotics , ovarian cancer on chemotherapy. * Type 2 diabetic at home, unknown control, new A1c ordered. * Pt is maintained on oral antidiabetic agents as an outpatient. * Oral agents are not recommended for inpatient use d/t drug interactions, changing PO intake, and difficulty titrating for acute hyper/hypoglycemia. ADA recommends re-initiating outpatient oral agents 1-2 days prior to discharge if/ when appropriate if they were held on admission. * Will hold oral agents for admission and utilize SQ bolus insulin regimen which is the recommended regimen for inpatient glycemic control. * Will initiate weight based insulin dosing for insulin joanna patient and titrate based on BSG trends. * Will only use bolus insulin at this time and add basal if needed based on blood sugars. PLAN FOR INPATIENT GLYCEMIC CONTROL: * Holding outpatient oral diabetes medications * Basal insulin - none at this time * Bolus insulin * NovoLog per scale ACHS or Q6hrs while NPO * Goal Range: Low 110 mg/dL - High 140 mg/dL * Correction Factor: 30 mg/dL/unit * Nutritional / Prandial insulin per carb ratio of 1 unit per 10 grams CHO consumed * Please note that the plan above was derived based on current level of insulin resistance and hospital stress. These recommendations are appropriate for inpatient admission only. Plan of care upon discharge will need to be reassessed to avoid potential outpatient hypo/hyperglycemia. Thank you.
[2018-12-05] MEDS: INSULIN ASPART 100 UNITS/ML 3 ML PEN SC SCH ×2 (18:21→20:33)
--- NOTE | 2018-12-05 23:07 | Progress Note ---
Date of Service December 05, 2018 Overnight nurse called stating that she was notified by outside hospital that the OSH blood cultures grew gram-negative bacilli. Patient is already on vancomycin and Primaxin. KRISTAN, PGY2 Overnight call Physical Exam 2 Vital Signs (Past 24 Hours): Last Vital Signs Temp 36.6 C 12/05/18 19:11 Pulse 83 12/05/18 19:11 Resp 20 12/05/18 19:11 BP 112/64 12/05/18 19:11 Pulse Ox 97 12/05/18 19:11
[2018-12-06] MEDS: NSS + 20MEQ KCL 20 MEQ/1,000 ML BAG IV SCH ×3 (03:18→23:52)
[2018-12-06] MEDS: IMIPENEM/CILASTATIN SODIUM 500 MG in DEXTROSE 5% 100 ML IV SCH ×2 (04:58→12:12)
[2018-12-06 06:41] LABS: Hematocrit (blood only) 27.1 % (37-47); Hemoglobin 8.9 g/dL (12.0-16.0); Mean Corpuscular Hgb Conc 32.8 g/dL (32-36); Mean Corpuscular Volume 91.9 fL (80-100); Platelet Count 16 K/uL (130-400); RDW Coefficient of Variation 17.1 % (11.5-14.5); Red Blood Count 2.95 M/uL (4.2-5.4); White Blood Count 6.02 K/uL (4.8-10.8)
[2018-12-06 06:51] LABS: ALC (manual) 0.42 K/uL (1.2-3.4); Eosinophils # (manual) 0.05 K/uL (0-0.5); Eosinophils % (manual) 0.9 %; Giant Platelets 2+; Lymphocytes # (manual) 0.42 K/uL (1.2-3.4); Monocytes # (manual) 0.16 K/uL (0.11-0.59); Monocytes % (manual) 2.6 %; Neutrophils % (manual) 89.5 %; Platelet Estimate SIGNIFIC DECREASED (Normal); Toxic Granulation 1+
[2018-12-06 07:10] LABS: BUN Creatinine Ratio 13.2 (10-20); Creatinine Clr Calc Pharmacy 50.4 ml/min; Est GFR (African American) 59.7; Est GFR (Non-African American) 51.5; Magnesium 1.6 mg/dl (1.8-2.4); Phosphorus 1.7 mg/dl (2.5-4.9); Potassium 3.7 mmol/L (3.5-5.1)
[2018-12-06 07:39] LABS: Estimated Average Glucose 111 mg/dl; Hemoglobin A1C 5.5 % (4.5-5.6)
[2018-12-06] MEDS ORDERED: MAGNESIUM SULFATE / D5W 1 GM/100 ML BAG IV ONE (09:15)
[2018-12-06] MEDS: ONDANSETRON INJ 2 MG/ML 2 ML VIAL IV PRN ×2 (09:30→18:07)
[2018-12-06] MEDS: PANTOprazole 40 MG TAB PO SCH ×2 (09:33→20:59)
[2018-12-06] MEDS: ALUMINUM/MAGNESIUM SUSP 50 ML, DiphenhydrAMINE Syrup 125 MG, LIDOCAINE HCL 2% VISCOUS 4... PO SCH ×4 (09:33→20:58)
[2018-12-06] MEDS: INSULIN ASPART 100 UNITS/ML 3 ML PEN SC SCH ×4 (09:44→20:58)
[2018-12-06] MEDS ORDERED: VANCOMYCIN TROUGH ONE (11:30)
[2018-12-06] MEDS: VANCOMYCIN HCL 1,250 MG in SODIUM CHLORIDE 0.9% 250 ML IV SCH (12:12)
--- NOTE | 2018-12-06 15:01 | Infectious Disease Consult ---
Date of Consultation December 06, 2018 Assessment & Plan (1) Klebsiella sepsis: 68-year-old female with metastatic ovarian carcinoma on chemotherapy with pancytopenia now with Klebsiella bacteremia with encephalopathy, now improving on antibiotics. Recommendations are for removal of a port in the setting of gram-negative bacteremia as no other obvious identifiable focus found. Would recommend de-escalation of antibiotics and will change to ertapenem 1 g daily given questionable allergy to cefaclor. Will follow. (2) Pancytopenia: History of Present Illness Reason for Consultation: Klebsiella bacteremia, length of therapy,? Removal of port Attending Physician: Scot Jimenez MD History of Present Illness 68-year-old female with known metastatic ovarian carcinoma on chemotherapy, who was recently admitted to [facility] with fever, encephalopathy, and pancytopenia. She was started empirically on vancomycin and Zosyn with improvement, now blood cultures have been reported positive for Klebsiella pneumoniae. Patient transferred here for further management. White count has been improving, now 6000, patient currently afebrile. She has been changed to IV vancomycin and imipenem here. Blood cultures are no growth to date, chest x- ray shows evidence of progressive metastatic disease but no obvious infiltrate. Allergies Allergy/AdvReac Type Severity Reaction Status Date / Time cefaclor AdvReac Mild Yeast Verified 07/16/18 05:59 Infection pioglitazone AdvReac Mild Leg Verified 07/16/18 05:59 Swelling rosiglitazone AdvReac Mild Leg Verified 07/16/18 05:59 Swelling shrimp AdvReac Mild NAUSEA/VOMI Verified 07/16/18 05:59 TING Home Medications Home Medications Medication Instructions Recorded Confirmed Type aspirin 81 mg PO QAM 07/07/18 07/16/18 History atorvastatin 20 mg PO HS 07/07/18 07/16/18 History calcium carbonate-vitamin D3 1 tab PO QAM 07/07/18 07/16/18 History [Os-Ilia 500 + D3] carvedilol 3.125 mg PO BID 07/07/18 07/16/18 History cholecalciferol (vitamin D3) 1,000 unit PO QPM 07/07/18 07/16/18 History [Vitamin D3] estradiol [Vagifem] 10 mcg VAGINAL 2XWK 07/07/18 07/16/18 History fish,bora,flax oils-om3,6,9no1 1 cap PO QAM 07/07/18 07/16/18 History [Forsyth 3-6-9] furosemide 40 mg PO UD 07/07/18 07/16/18 History glimepiride 2 mg PO HS 07/07/18 07/16/18 History iron,carbonyl-vitamin C [Vitron-C] 1 tab PO DAILY 07/07/18 07/16/18 History lactobacillus combination no.4 3,000 mmu cells PO DAILY 07/07/18 07/16/18 History [Probiotic] lisinopril 10 mg PO QAM 07/07/18 07/16/18 History metformin 1,000 mg PO BID 07/07/18 07/16/18 History omeprazole 40 mg PO QPM 07/07/18 07/16/18 History Tylenol See Label Instructions .ROUTE 07/16/18 07/16/18 History .COMPLEX PRN Patient History Medical History Anxiety Cancer DX 2004 W/ OVARIAN CA - S/P GREGG BSO - 2014 CA TO LT SUPRACLAVICULAR LYMPH NODE - S/P CHEMO - DX 05/2018 - RETURN TO LYMPH NODES (WILL BE TREATED W/ CHEMO) Cholelithiases Congestive heart failure chronic diastolic Diabetes mellitus, type 2 GERD (gastroesophageal reflux disease) Hiatal hernia Hyperlipidemia Hypertension Nonrheumatic aortic (valve) stenosis Noted in cardio note...but normal trileaflet aortic valve noted on 11/2016 [place]. Osteoarthritis Pacemaker BRADYCARDIA - 04/2017 - LAST CHECKED 06/18/18 - [employer] - FOLLOWS W/ DR. SMALLS Valvular disease Moderate mitral regurg, mild-moderate tricuspid regurg. Surgical History History of bilateral tubal ligation History of cardiac cath 10/2014 - [place] - ABN STRESS TEST - NO ANGIOPLASTY/STENT History of carpal tunnel release of both wrists History of herniorrhaphy S/P GREGG-BSO Family History Unknown Coronary artery disease Stroke Cervical cancer Diabetes Social History Current Living Situation: Spouse Feels Safe at Home: Yes Smoking Status: Former smoker Second Hand Exposure: Yes Hx Alcohol Use: No Hx Substance Use: No Beliefs That Will Affect Care: None Communication Ability: Effective Review of Systems Occasional nonproductive cough, generalized weakness and fatigue, otherwise all systems were reviewed and are negative except as per HPI Physical Exam 2 Vital Signs (Past 24 Hours): Last Vital Signs Temp 36.3 C L 12/06/18 11:57 Pulse 97 H 12/06/18 11:57 Resp 14 12/06/18 11:57 BP 104/70 12/06/18 11:57 Pulse Ox 95 12/06/18 11:57 Constitutional: WD/WN, vitals as above no acute distress Eyes: PERRL, conjunctivae normal, anicteric sclerae ENMT: Ears: no external ear abnormality Nose: no external nose abnormality Mild inflammation and bleeding of gums Neck: trachea midline, no thyromegaly neck nontender Respiratory: normal respiratory effort, lungs clear to auscultation normal percussion; no respiratory distress Cardiovascular: Heart Sounds: no gallop, no murmur and no cardiac rub Irregularly irregular Gastrointestinal (Abdomen): normal bowel sounds, soft, nontender, no hepatosplenomegaly Musculoskeletal: no cyanosis or clubbing, extremities motor strength 5/5 Head/Neck/Chest: normocephalic and head atraumatic Skin: no rashes, warm and dry Alopecia, a port site appears without infection Neurologic: moves all extremities and awake; no focal motor deficits Psychiatric: A+Ox3, euthymic affect Lymphatic: no cervical or axillary lymphadenopathy no inguinal lymphadenopathy Results & Data Laboratory Results Short CBC 12/06/18 Range/Units 05:40 WBC 6.02 (4.8-10.8) K/uL Hgb 8.9 L (12.0-16.0) g/dL Hct 27.1 L (37-47) % Plt Count 16 L* (130-400) K/uL BMP 12/06/18 05:40 Sodium 143 Potassium 3.7 Chloride 112 H Carbon Dioxide 25 BUN 15 Creatinine 1.10 D Glucose 69 L Calcium 8.0 L Diagnostic Findings Director: Shahzad Pittman M.D. Clinical Laboratory Report Name: JOSE HERBERT Acct: [id number] Status: ADM IN : 1950 [facility] [place] Date: 02/ 21/19 Age: 68 Sex: F Dis Date: Loc: Medical Oncology [address] [place] [address]/Bed: E402-1 Spec: [id number] Collected: 12/06/18 Received: 12/06/[address]: Moni Driver MD Copy To: Ganesh Daniels M.D., Thomas E., M.D. Lieb, James V. D.O. Capp, Kevin C., PCP,NO Source: Blood OV Order: Ordered: Blood Culture Comments: Comment one from the periphery and one from the Wanda cath Procedure Result Verified Site Blood Culture PENDING Name: JOSE HERBERT : 1950 PAGE 1 Printed: 12/06/18 3068 END OF REPORT
--- NOTE | 2018-12-06 15:10 | Pharmacy Report ---
Pharmacy Abx Dose Short Note - Date of Service December 06, 2018 - Assessment & Plan Assessment 68 year old F transferred from [facility] due to fever, MS changes, dehydration due to NVD, febrile neutropenia * [facility] blood cx from port growing gram negative rods. Peripheral BLCX is also growing gram negative rods. Urine Cx is growing 80,000CFU enterococcus faecalis resistant TCNs but sens to all others tested * ID consult ordered 12/06 to follow the patient Vancomycin: * Trough came back slightly subtherapeutic at ~14.4 mcg/ml (goal closer 15-20 mcg/ml) * Scr continues to improve closer to baseline, from 1.49 mg/dL to 1.10 mg/dL today (CrCl ~14.4 mcg/ml) * Anticipate patient will require higher vancomycin dosing due to improved renal function, therefore will plan to increase to vancomycin 1500 mg iv q 24 hrs to achieve slightly higher trough. Patient with elevated BMI >35 kg/m2 therefore will monitor closely for accumulation * Will plan to reorder trough in next 2-3 days if continued Pharmacy will continue to follow and will adjust dose/frequency as necessary. Thank you.
--- NOTE | 2018-12-06 15:34 | Hospitalist Progress Note ---
Date of Service December 06, 2018 Assessment & Plan (1) Febrile neutropenia: This chemotherapy associated febrile neutropenia. Gram-negative bacteremia likely from translocation from gut patient has been changed to imipenem therapy infectious disease consult be undertaken diarrhea C. difficile test was performed and is negative The patient did receive Neupogen with good response of her bone marrow (2) Pancytopenia: cHemotherapy associated pancytopenia. Bone marrow rescue by Neupogen, platelet count is still sluggish but acceptable at this time (3) Diabetes mellitus, type 2: Pharmacy managed diabetic protocol we will continue to hold her typical glimepiride metformin (4) Hypertension: Patient has some history of coronary disease she is typically on aspirin atorvastatin Coreg and Lasix plus lisinopril these will remain held and if we re -begin these medications possibly targeting Coreg as first 1 added back on 12/06 her blood pressure remains low (5) Diarrhea: As mentioned patient is volume loss of the diarrhea diarrhea persist likely related to chemotherapy continue to hydrate, will add antidiarrheals and fiber (6) DVT prophylaxis: Chemoprophylaxis is contraindicated with the patient's thrombocytopenia likely external device may promote bruising Subjective this pt is still having significant mouth pain and gum bleeding, she does have evidence of klebsiella in blood cultures, her wbc has responded but platelets are laging Review of Systems ROS: No double vision blurry vision No problems with speech does complain of mild pain difficulty chewing and swallowing No palpitations, chest pain or pressure No Wheezing or breathing issues does have occasional coughing No abdominal pain nausea vomiting has persistent diarrhea No burning urine urine frequency or changes in color No focal joint pain or muscle pain No skin rashes or oral lesions No focused back pain or numbness or loss of strength No changes in memory or confusion Physical Exam 2 Vital Signs (Past 24 Hours): Last Vital Signs Temp 36.3 C L 12/06/18 11:57 Pulse 97 H 12/06/18 11:57 Resp 14 12/06/18 11:57 BP 104/70 12/06/18 11:57 Pulse Ox 95 12/06/18 11:57 The patient appeared as a typical chemotherapeutic patient she is alopecic Vital signs as documented. Head exam is unremarkable. normocephalic, atraumatic Oropharynx still has some ecchymosis to her lower gums Neck is without jugular venous distension, thyromegaly, or lymphademopathy Lungs are clear to auscultation exception of basilar rales that clear Cardiac exam reveals is rate controlled but irregular. First and second heart sounds normal. Abdominal exam reveals normal bowel sounds, no masses, no organomegaly Extremities are nonedematous and both pedal pulses are present Neurologic exam is A&Ox3, no focal deficits, strength is equal bilateral Psychologically seems neither anxious or depressed
[2018-12-06] MEDS ORDERED: PSYLLIUM 58.6% POWDER PACKET PO SCH (15:45)
[2018-12-06] MEDS: ERTAPENEM SODIUM 1,000 MG in SODIUM CHLORIDE 0.9% 50 ML IV SCH (16:14)
[2018-12-06] MEDS: MICONAZOLE NITRATE POWDER 43 GM EXT PRN (20:57)
[2018-12-07] MEDS ORDERED: HEPARIN 100 UNIT/ML 5ML FLUSH FLUSH PRN (00:44)
[2018-12-07 05:57] LABS: Nucleated RBC # (auto) 0.05 K/uL (0-0); Nucleated RBC % (auto) 0.5 %
[2018-12-07 06:33] LABS: BUN Creatinine Ratio 15.2 (10-20); Calcium 8.1 mg/dl (8.5-10.1); Creatinine Clr Calc Pharmacy 64.5 ml/min; Est GFR (African American) 78.2; Est GFR (Non-African American) 67.5; Magnesium 1.6 mg/dl (1.8-2.4); Potassium 3.9 mmol/L (3.5-5.1)
[2018-12-07 06:45] LABS: Phosphorus 1.2 mg/dl (2.5-4.9)
[2018-12-07 07:02] LABS: Hematocrit (blood only) 27.3 % (37-47); Mean Corpuscular Volume 92.2 fL (80-100); Platelet Count 34 K/uL (130-400); RDW Coefficient of Variation 17.4 % (11.5-14.5); RDW Standard Deviation 57.5 fL (36.4-46.3); Red Blood Count 2.96 M/uL (4.2-5.4); White Blood Count 9.77 K/uL (4.8-10.8)
[2018-12-07 07:05] LABS: ALC (manual) 1.45 K/uL (1.2-3.4); Basophils # (manual) 0.09 K/uL (0-0.2); Basophils % (manual) 0.9 %; Lymphocytes # (manual) 1.45 K/uL (1.2-3.4); Lymphocytes % (manual) 14.8 %; Monocytes # (manual) 0.76 K/uL (0.11-0.59); Monocytes % (manual) 7.8 %; Neutrophils % (manual) 76.5 %; Platelet Estimate Decreased (Normal)
[2018-12-07] MEDS: NSS + 20MEQ KCL 20 MEQ/1,000 ML BAG IV SCH ×2 (08:34→20:12)
[2018-12-07] MEDS: PANTOprazole 40 MG TAB PO SCH ×2 (08:34→22:12)
[2018-12-07] MEDS: INSULIN ASPART 100 UNITS/ML 3 ML PEN SC SCH ×4 (08:36→20:13)
[2018-12-07] MEDS: ALUMINUM/MAGNESIUM SUSP 50 ML, DiphenhydrAMINE Syrup 125 MG, LIDOCAINE HCL 2% VISCOUS 4... PO SCH ×4 (08:36→22:13)
[2018-12-07] MEDS ORDERED: Nursing to Pharmacy Communication ONE (08:36)
[2018-12-07] MEDS ORDERED: SODIUM PHOSPHATE 3 MMOL/1 ML INFUSION IV STA (09:28)
[2018-12-07] MEDS ORDERED: MAGNESIUM SULFATE / D5W 1 GM/100 ML BAG IV ONE (10:00)
[2018-12-07] MEDS ORDERED: SODIUM PHOSPHATE 21 MMOL in SODIUM CHLORIDE 0.9% 500 ML IV ONE (10:00)
--- NOTE | 2018-12-07 10:48 | Pharmacy Report ---
Glycemic Control Progress Note - Date of Service December 07, 2018 - Scope Glycemic Pharmacist consulted for glycemic control to write orders per [facility] inpatient glycemic control protocol. - Objective Accuchecks BSG(last 24 hours):: 12/06/18 12/06/18 12/06/18 11:52 16:35 20:13 Glucose POC Glucose 97 102 H 116 H 12/07/18 12/07/18 05:31 07:34 Glucose 95 POC Glucose 86 HbA1c:: Hemoglobin A1c 5.5 % (4.5-5.6) 12/06/18 05:40 - Recent Pertinent Medications The patient is currently receiving: * Basal insulin: Lantus -- units every -- hours * Correctional Insulin: Novolog Correction per scale ACHS Goal Range: Low 110 mg/dL - High 140 mg/dL Correction Factor: 30 mg/dL/unit * Prandial insulin: Per carb ratio of 1 unit per 10 grams CHO consumed - Outpatient Anti-Diabetic Meds glimepiride 2mg PO HS plus metformin 1 gm PO BID - Assessment & Plan ASSESSMENT: * See progress note from 12/05/18 for more background info, in short: * Pt receiving SQ basal bolus insulin regimen for hyperglycemia secondary to baseline DM (outpatient regimen on hold) and Gram negative bacteremia on Invanz. * Patient is currently receiving an average of 0 units of insulin per day * 0 units of basal insulin * 0 units of prandial/correctional insulin * BSGs ranging 69 - 116 mg/dl over the past 24hrs * Changes needed to insulin regimen: * AM Fasting BSG = 86 mg/dl. This is slightly below goal range for patient based on inpatient targets and co-morbidities. Basal insulin will continue to be held. * Post-prandial BSGs are in range therefore no changes needed to CF/CR. * Total daily dose = <5 units. Increased goal range since patient has not required any insulin in 24 hours. PLAN FOR INPATIENT GLYCEMIC CONTROL: * Continuing correction factor of 30 mg/dl/unit * Continuing carb ratio of 1 unit per 10 grams CHO consumed * Changing goal range to Low 120 mg/dL - High 160 mg/dL RECOMMENDATIONS FOR DISCHARGE: * AWAIT HBA1C ON 12/08/18 * Please note that the plan above was derived based on current level of insulin resistance and hospital stress. These recommendations are appropriate for inpatient admission only. Plan of care upon discharge will need to be reassessed to avoid potential outpatient hypo/hyperglycemia. Thank you.
[2018-12-07] MEDS: PSYLLIUM 58.6% POWDER PACKET PO SCH ×2 (12:26→14:14)
--- NOTE | 2018-12-07 14:14 | Hospitalist Progress Note ---
Date of Service December 07, 2018 Assessment & Plan (1) Febrile neutropenia: This chemotherapy associated febrile neutropenia. Resolved Gram-negative bacteremia (Klebsiella) likely from translocation from gut patient has been changed to ertapenem therapy infectious disease consult is considering removal of line, however the patient states she is in the past she is been very difficult to have PICC line placed and difficult to have her port placed. Dr. Bradshaw is her typical surgeon and likely can confer with him during the week to determine if she truly has a challenge to have a line placed. This may alter infectious disease plan and duration of intravenous antibiotic therapy diarrhea C. difficile test was performed and is negative The patient did receive Neupogen with good response of her bone marrow (2) Pancytopenia: cHemotherapy associated pancytopenia. Bone marrow rescue by Neupogen, platelet count is slowly improving (3) Diabetes mellitus, type 2: Pharmacy managed diabetic protocol we will continue to hold her typical glimepiride metformin especially while having poor p.o. intake (4) Hypertension: Patient has some history of coronary disease she is typically on aspirin atorvastatin Coreg and Lasix plus lisinopril these will remain held and if we re -begin these medications possibly targeting Coreg her blood pressure remains low as of 12/07 (5) Diarrhea: diarrhea persists, likely related to chemotherapy continue to hydrate, will add antidiarrheals and fiber Patient has electrolyte disturbances hypomagnesemia hypophosphatemia these are replete 12/07 (6) DVT prophylaxis: Chemoprophylaxis is contraindicated with the patient's thrombocytopenia likely external device may promote bruising Subjective Patient is improved she still has mucosal injury to her mouth and having diarrhea. The patient voiced a wish to proceed to likely a rehab center to continue her treatment when she is in better shape here. Her is at the bedside and voices an understanding of that. She does have some mouth pain is able to swallow soft or liquid food has improving abdominal pain Review of Systems ROS: Weak tired and fatigued No double vision blurry vision No problems with speech continued swallowing issues due to mucosal injury No palpitations, chest pain or pressure No Wheezing or breathing issues Mild abdominal pain but no nausea vomiting persistent diarrhea No burning urine urine frequency or changes in color No focal joint pain or muscle pain No unusual bruising or bleeding No focused back pain or numbness or loss of strength No changes in memory or confusion Physical Exam 2 Vital Signs (Past 24 Hours): Last Vital Signs Temp 36.6 C 12/07/18 11:40 Pulse 91 H 12/07/18 11:40 Resp 16 12/07/18 11:40 BP 90/60 L 12/07/18 11:40 Pulse Ox 100 12/07/18 11:40 The patient appeared chronically ill she has alopecia Vital signs as documented. Head exam is unremarkable. normocephalic, atraumatic Oral mucous membranes still have some bleeding ecchymosis is seen Neck is without jugular venous distension, thyromegaly, or lymphademopathy Lungs are clear to auscultation and percussion. Cardiac exam reveals Rhythm is regular. First and second heart sounds normal. Abdominal exam reveals general mild diffuse tenderness no rebound no guarding, normal bowel sounds, no masses, no organomegaly Extremities are nonedematous and both pedal pulses are present Neurologic exam is A&Ox3, no focal deficits, strength is equal bilateral Psychologically seems neither anxious or depressed
[2018-12-07] MEDS ORDERED: SODIUM CHLORIDE 0.65% NA SOLN 45 ML (OCEAN) PRN (14:15)
[2018-12-07] MEDS ORDERED: SODIUM CHLORIDE 0.65% NA SOLN 45 ML (OCEAN) ONE (14:17)
[2018-12-07] MEDS: LOPERAMIDE HCL 2 MG CAP PO PRN ×2 (14:55→17:46)
[2018-12-07] MEDS: ERTAPENEM SODIUM 1,000 MG in SODIUM CHLORIDE 0.9% 50 ML IV SCH (14:59)
[2018-12-08] MEDS: MICONAZOLE NITRATE POWDER 43 GM EXT PRN (05:30)
[2018-12-08 06:38] LABS: Mean Corpuscular Hgb Conc 32.2 g/dL (32-36)
[2018-12-08] MEDS: NSS + 20MEQ KCL 20 MEQ/1,000 ML BAG IV SCH ×2 (06:39→19:57)
[2018-12-08 06:43] LABS: Hematocrit (blood only) 27.6 % (37-47); Hemoglobin 8.9 g/dL (12.0-16.0); Mean Corpuscular Volume 92.9 fL (80-100); RDW Coefficient of Variation 17.4 % (11.5-14.5); RDW Standard Deviation 58.9 fL (36.4-46.3); Red Blood Count 2.97 M/uL (4.2-5.4); White Blood Count 6.61 K/uL (4.8-10.8)
[2018-12-08 07:16] LABS: BUN Creatinine Ratio 15.4 (10-20); Calcium 8.2 mg/dl (8.5-10.1); Creatinine Clr Calc Pharmacy 74.9 ml/min; Est GFR (Non-African American) 79.3; Magnesium 1.4 mg/dl (1.8-2.4)
[2018-12-08] MEDS: PANTOprazole 40 MG TAB PO SCH ×2 (07:19→20:04)
[2018-12-08 07:20] LABS: Phosphorus 2.5 mg/dl (2.5-4.9)
[2018-12-08] MEDS: ALUMINUM/MAGNESIUM SUSP 50 ML, DiphenhydrAMINE Syrup 125 MG, LIDOCAINE HCL 2% VISCOUS 4... PO SCH ×4 (07:20→22:37)
[2018-12-08] MEDS: LOPERAMIDE HCL 2 MG CAP PO PRN (07:20)
[2018-12-08 07:22] LABS: Platelet Count 38 K/uL (130-400)
[2018-12-08 07:23] LABS: Anisocytosis Present; Basophils # (auto) 0.05 K/uL (0-0.2); Basophils % (auto) 0.8 %; Dohle Bodies 1+; Eosinophils # (auto) 0.03 K/uL (0-0.5); Eosinophils % (auto) 0.5 %; Immature Granulocytes # (auto) 0.42 K/uL (0.00-0.02); Immature Granulocytes % (auto) 6.4 %; Lymphocytes # (auto) 1.47 K/uL (1.2-3.4); Lymphocytes % (auto) 22.2 %; Monocytes # (auto) 0.55 K/uL (0.11-0.59); Monocytes % (auto) 8.3 %; Neutrophils # (auto) 4.09 K/uL (1.4-6.5); Neutrophils % (auto) 61.8 %; Platelet Estimate Decreased (Normal); Poikilocytosis Present; Toxic Granulation 1+
[2018-12-08] MEDS: INSULIN ASPART 100 UNITS/ML 3 ML PEN SC SCH ×4 (08:08→20:08)
[2018-12-08] MEDS: PSYLLIUM 58.6% POWDER PACKET PO SCH (11:25)
--- NOTE | 2018-12-08 11:26 | Hospitalist Progress Note ---
Date of Service December 08, 2018 Assessment & Plan (1) Febrile neutropenia: This chemotherapy associated febrile neutropenia. Resolved Gram-negative bacteremia (Klebsiella) likely from translocation from gut patient has been changed to ertapenem therapy infectious disease consult is considering removal of line, however the patient states she is in the past she is been very difficult to have PICC line placed and difficult to have her port placed. Dr. Bradshaw is her typical surgeon and likely can confer with him during the week to determine if she truly has a challenge to have a line placed. This may alter infectious disease plan and duration of intravenous antibiotic therapy diarrhea C. difficile test was performed and is negative The patient did receive Neupogen with good response of her bone marrow. 12/08 Patient has edgardo negative bacteremia. Due to rate of failure and relpase, patient will like need PORT removed. however patient states she has difficulty obtaining a PICC line. Will try to obtain an IV access ultrasound guided line. (2) Pancytopenia: cHemotherapy associated pancytopenia. Bone marrow rescue by Neupogen, platelet count is slowly improving: currently at 38 (3) Diabetes mellitus, type 2: Pharmacy managed diabetic protocol we will continue to hold her typical glimepiride metformin especially while having poor p.o. intake (4) Hypertension: Patient has some history of coronary disease she is typically on aspirin atorvastatin Coreg and Lasix plus lisinopril these will remain held and if we re -begin these medications possibly targeting Coreg her blood pressure remains low as of 12/07 (5) Diarrhea: diarrhea persists, likely related to chemotherapy continue to hydrate, will add antidiarrheals and fiber Patient has electrolyte disturbances hypomagnesemia hypophosphatemia these were repleted 12/07; (6) DVT prophylaxis: Chemoprophylaxis is contraindicated with the patient's thrombocytopenia likely external device may promote bruising Spent 35 minutes in management of patient. Discussing with consultants and reviewing chart. Subjective Patient reports that she continues to have diarrhea. She also states that she would like to see psychiatry for symptoms of depression. She is very concerned about her given that see is the one that handles the finances at home. She understands that she may need to he port removed, but is concerned over possiblity of getting IV access as she states its hard for her to get PICC line. Stated that we will get an ultrasound guided peripehral line. She does have some mouth pain is able to swallow soft or liquid food has improving abdominal pain Physical Exam 2 Vital Signs (Past 24 Hours): Last Vital Signs Temp 36.4 C L 12/08/18 07:15 Pulse 82 12/08/18 07:15 Resp 18 12/08/18 07:15 BP 122/80 12/08/18 07:15 Pulse Ox 95 12/08/18 07:15 Physical Exam: The patient appeared chronically ill Vital signs as documented. Head exam is unremarkable. normocephalic, atraumatic, alopecia Oral mucous membranes: appear somewhat dry. Neck is without jugular venous distension, thyromegaly, or lymphademopathy Lungs are clear to auscultation and percussion. Cardiac exam reveals Rhythm is regular. First and second heart sounds normal. Abdominal exam reveals general mild diffuse tenderness no rebound no guarding, normal bowel sounds, no masses, no organomegaly Extremities are nonedematous and both pedal pulses are present Neurologic exam is A&Ox3, no focal deficits, strength is equal bilateral Psychologically does not appear depressed, but patient is requesting to see psych.
[2018-12-08] MEDS: LOPERAMIDE HCL 2 MG CAP PO SCH ×2 (13:27→19:58)
[2018-12-08] MEDS: ERTAPENEM SODIUM 1,000 MG in SODIUM CHLORIDE 0.9% 50 ML IV SCH (14:55)
--- NOTE | 2018-12-08 15:04 | Psychiatric Consultation ---
Date of Consultation December 08, 2018 Impression / Recommendations Impression 68 yo woman admitted with febrile neutropenia induced by chemo for metastatic ovarian cancer. Consult requested for depression. This is a very pleasant woman with some very real concerns for her future and how her will manage. She is open to the idea of an antidepressant, but her platelets are still low at 34 K and last EKG performed at [facility] revealed a QTc of 568 msec. SSRI's can potentially have negative effects to both of these and so would hold until oncology thinks that its safe to start. Would suggest Lexapro 5 mg daily. She is also quite bright and eloquent and I think she would benefit from therapy, but did not make that suggestion at this time until we know that she will be going home and is able to go to [facility]. I understand that she will be going to an SNF as she needs several weeks of IV therapy and perhaps there is a psychologist at one of the facilities she has chosen. (1) Depression: 12/08 - Would benefit from an antidepressant and would suggest Lexapro 5 mg daily but currently with low platelets and prolonged QTc. Will defer to oncology as to whether safe to start. Present on Admission?: Yes Risk Factors Assessment Male: No : Yes Do You Have Access To A Gun?: Yes Health Problems: Yes Mental Health Diagnoses: No Substance Use Disorders: No Previous Attempt: No Family History of Suicide: No Previous Psychiatric Hospitalization: No Protective Factors Assessment Rastafarian Beliefs: Yes : Yes Responsible for Young Children: No Employed: No Stable Relationships: Yes Supportive Family: Yes CPT Code 91193 Psych History Identifying Data The patient is a 68 yo female admitted with chemo induced febrile neutropenia, and diarrhea. We are consulted to evaluate depression. Information is gathered from the patient and considered to be reliable. Chief Complaint "Sometimes I feel like giving up. ". History of Present Illness The patient is a 68 yo woman, transferred from [facility] due to febrile neurolpenia. She has been undergoing chemo for metastatic ovarian cancer. She was diagnosed 13 years ago, and was cancer free for 10 years when she developed a lump in her neck and was diagnosed with metastatic disease. Her oncologist is Dr. Alfredo. Her last round of chem was quite debilitating with impaired appetite, diarrhea, and ultimatley AMS and febrile neutropenia. She describes having been sick since August of 2018 and has become frustrated and questioning whether or not her disease is treatable. She admits to worrying about her should she , as she takes care of all of the financial concerns, while he works hard as a clinical counselor. She is also worried about her course of treatment in that she has always had small veins that are difficult to catherize, and has just had to have a PICC inserted because her port is infected. This too was painful causing her to worry about the possibility she will have to have the painful procedure every month. She admits that there are times she wants to give up, but denies any active SI. Her sleep is generally OK because at home she uses medical marijuana. Appetite is poor and has to force herself to eat, and is avoidant of eating because it stimulates diarrhea. She is not a chronically anxious person, but as above, her anxiety is focused on how her will survive without her. She denies ever having had a panic attack, and denies any hallucinatory experiences. Past Psychiatric History Previous Psych History: Saw a therapist for a while after a divorce many years ago Outpatient Services: None Previous Psych Admissions: None Do You Have Access To A Gun?: Yes History of Previous Suicide Attempt: No Past Medication Trials: None Allergies Allergy/AdvReac Type Severity Reaction Status Date / Time cefaclor AdvReac Mild Yeast Verified 07/16/18 05:59 Infection pioglitazone AdvReac Mild Leg Verified 07/16/18 05:59 Swelling rosiglitazone AdvReac Mild Leg Verified 07/16/18 05:59 Swelling shrimp AdvReac Mild NAUSEA/VOMI Verified 07/16/18 05:59 TING Home Medications Home Medications Medication Instructions Recorded Confirmed Type aspirin 81 mg PO QAM 07/07/18 07/16/18 History atorvastatin 20 mg PO HS 07/07/18 07/16/18 History calcium carbonate-vitamin D3 1 tab PO QAM 07/07/18 07/16/18 History [Os-Ilia 500 + D3] carvedilol 3.125 mg PO BID 07/07/18 07/16/18 History cholecalciferol (vitamin D3) 1,000 unit PO QPM 07/07/18 07/16/18 History [Vitamin D3] estradiol [Vagifem] 10 mcg VAGINAL 2XWK 07/07/18 07/16/18 History fish,bora,flax oils-om3,[id number] 1 cap PO QAM 07/07/18 07/16/18 History [Lorton 3-6-9] furosemide 40 mg PO UD 07/07/18 07/16/18 History glimepiride 2 mg PO HS 07/07/18 07/16/18 History iron,carbonyl-vitamin C [Vitron-C] 1 tab PO DAILY 07/07/18 07/16/18 History lactobacillus combination no.4 3,000 mmu cells PO DAILY 07/07/18 07/16/18 History [Probiotic] lisinopril 10 mg PO QAM 07/07/18 07/16/18 History metformin 1,000 mg PO BID 07/07/18 07/16/18 History omeprazole 40 mg PO QPM 07/07/18 07/16/18 History Tylenol See Label Instructions .ROUTE 07/16/18 07/16/18 History .COMPLEX PRN Family History Mother with drug and alcohol problems Substance Abuse History Denies Personal History Living Arrangements: Home (with ) Highest Grade Completed: College (3 years ) Employment Status: Retired Marital Status: Number Of Children: 1 son, 2 step children Beliefs That Will Affect Care: None Patient History Medical History Anxiety Cancer DX 2004 W/ OVARIAN CA - S/P GREGG BSO - 2014 CA TO LT SUPRACLAVICULAR LYMPH NODE - S/P CHEMO - DX 05/2018 - RETURN TO LYMPH NODES (WILL BE TREATED W/ CHEMO) Cholelithiases Congestive heart failure chronic diastolic Diabetes mellitus, type 2 GERD (gastroesophageal reflux disease) Hiatal hernia Hyperlipidemia Hypertension Nonrheumatic aortic (valve) stenosis Noted in cardio note...but normal trileaflet aortic valve noted on 11/2016 [facility]. Osteoarthritis Pacemaker BRADYCARDIA - 04/2017 - LAST CHECKED 06/18/18 - [facility] - FOLLOWS W/ DR. SMALLS Valvular disease Moderate mitral regurg, mild-moderate tricuspid regurg. Surgical History History of bilateral tubal ligation History of cardiac cath 10/2014 - [facility] - ABN STRESS TEST - NO ANGIOPLASTY/STENT History of carpal tunnel release of both wrists History of herniorrhaphy S/P GREGG-BSO Family History Unknown Coronary artery disease Stroke Cervical cancer Diabetes Social History Current Living Situation: Spouse Feels Safe at Home: Yes Smoking Status: Former smoker Second Hand Exposure: Yes Hx Alcohol Use: No Hx Substance Use: No Beliefs That Will Affect Care: None Communication Ability: Effective Physical Exam Psychiatric Orientation: alert, oriented x 3 and cooperative Apperance: appropriately dressed (wearing pink turban on her head) and appropriately groomed Eye Contact: good eye contact Motor Behavior: no abnormal motor movements Speech: normal rate/rhythm/volume of speech Affect: + blunted affect Mood: + depressed mood and + anxious mood Thought Process: goal directed thought process Thought Content: reality based without delusions Suicidal Thoughts: denies suicidal thoughts Homicidal Thoughts: denies homicidal thoughts Hallucinations: no auditory hallucinations and no visual hallucinations Cognition: recent memory grossly intact, remote memory grossly intact, attention grossly intact and language grossly intact Estimated Intelligence: average estimated intelligence Insight: + fair insight Judgement: + fair judgement Vital Signs (Past 24 Hours) Last Vital Signs Temp 36.5 C 12/08/18 11:50 Pulse 94 H 12/08/18 11:50 Resp 16 12/08/18 11:50 BP 115/77 12/08/18 11:50 Pulse Ox 98 12/08/18 11:50 Review of Systems All systems reviewed & are unremarkable except as noted in HPI & below Results & Data Medications Administered Al Hydrox/Mg Hydrox/Simethicone 50 ml/Diphenhydramine HCl 125 mg/Lidocaine HCl 40 ml/Sucralfate 10,000 mg/ BARCODE IDENTIFIER 1 ea 0 ml PO QID [facility] Stop: 01/04/19 12:59 Last Admin: 12/08/18 12:53 Dose: 5 ml Admin: 12/08/18 07:20 Dose: 5 ml Admin: 12/07/18 22:13 Dose: 5 ml Admin: 12/07/18 17:47 Dose: 5 ml Admin: 12/07/18 12:26 Dose: 5 ml Admin: 12/07/18 08:36 Dose: 5 ml Admin: 12/06/18 20:58 Dose: Not Given Admin: 12/06/18 17:19 Dose: 5 ml Admin: 12/06/18 12:13 Dose: 5 ml Admin: 12/06/18 09:33 Dose: 5 ml Admin: 12/05/18 21:04 Dose: 5 ml Admin: 12/05/18 18:20 Dose: 5 ml Admin: 12/05/18 12:02 Dose: 5 ml Potassium Chloride/Sodium Chloride (Normal Saline W/20 Meq Kcl) 20 meq in 1, 000 mls @ 80 mls/hr IV .[id number] [facility] Stop: 01/03/19 11:14 Last Admin: 12/08/18 06:39 Dose: 80 mls/hr Infusion: 12/08/18 06:12 Dose: 100 mls/hr Admin: 12/07/18 20:12 Dose: 100 mls/hr Infusion: 12/07/18 18:34 Dose: 100 mls/hr Admin: 12/07/18 08:34 Dose: 100 mls/hr Infusion: 12/07/18 08:34 Dose: 100 mls/hr Admin: 12/06/18 23:52 Dose: 100 mls/hr Infusion: 12/06/18 23:13 Dose: 100 mls/hr Admin: 12/06/18 13:13 Dose: 100 mls/hr Infusion: 12/06/18 13:13 Dose: 100 mls/hr Admin: 12/06/18 03:18 Dose: 100 mls/hr Infusion: 12/06/18 03:18 Dose: 100 mls/hr Admin: 12/05/18 18:24 Dose: 100 mls/hr Infusion: 12/05/18 18:24 Dose: 0 mls/hr Admin: 12/05/18 08:07 Dose: 100 mls/hr Infusion: 12/05/18 07:09 Dose: 100 mls/hr Admin: 12/04/18 21:09 Dose: 100 mls/hr Infusion: 12/04/18 21:09 Dose: 100 mls/hr Admin: 12/04/18 11:40 Dose: 100 mls/hr Ertapenem 1,000 mg/ Sodium (Chloride) 60 mls @ 100 mls/hr IV Q24H [facility]; Protocol Stop: 12/20/18 15:29 Last Infusion: 12/07/18 15:40 Dose: 0 mls/hr Admin: 12/07/18 14:59 Dose: 100 mls/hr Infusion: 12/06/18 16:51 Dose: 0 mls/hr Admin: 12/06/18 16:14 Dose: 100 mls/hr Insulin Aspart (Novolog Flexpen) 0 units SC ACHS [facility]; Protocol Stop: 01/04/19 16:29 Last Admin: 12/08/18 12:19 Dose: Not Given Admin: 12/08/18 08:08 Dose: Not Given Admin: 12/07/18 20:13 Dose: Not Given Admin: 12/07/18 17:46 Dose: Not Given Admin: 12/07/18 12:26 Dose: Not Given Admin: 12/07/18 08:36 Dose: Not Given Admin: 12/06/18 20:58 Dose: Not Given Admin: 12/06/18 17:18 Dose: Not Given Admin: 12/06/18 13:13 Dose: Not Given Admin: 12/06/18 09:44 Dose: Not Given Admin: 12/05/18 20:33 Dose: Not Given Admin: 12/05/18 18:21 Dose: 1 units Loperamide HCl (Imodium) 4 mg PO Q6H [facility] Stop: 01/07/19 13:59 Last Admin: 12/08/18 13:27 Dose: 4 mg Miconazole Nitrate (Desenex) 1 appln EXT PRN PRN PRN Reason: Affected Skin Folds Stop: 01/05/19 19:06 Last Admin: 12/08/18 05:30 Dose: 1 appln Admin: 12/06/18 20:57 Dose: 1 appln Ondansetron HCl (Zofran) 4 mg IV Q4H PRN PRN Reason: Nausea Stop: 01/05/19 08:56 Last Admin: 12/06/18 18:07 Dose: 4 mg Admin: 12/06/18 09:30 Dose: 4 mg Pantoprazole Sodium (Protonix) 40 mg PO BID [facility] Stop: 01/03/19 20:59 Last Admin: 12/08/18 07:19 Dose: 40 mg Admin: 12/07/18 22:12 Dose: 40 mg Admin: 12/07/18 08:34 Dose: 40 mg Admin: 12/06/18 20:59 Dose: 40 mg Admin: 12/06/18 09:33 Dose: 40 mg Admin: 12/05/18 21:04 Dose: 40 mg Admin: 12/05/18 08:39 Dose: 40 mg Admin: 12/04/18 21:08 Dose: 40 mg Psyllium Hydrophilic Mucilloid (Metamucil) 1 pkt PO DAILY@1100 [facility]; Protocol Stop: 01/06/19 10:59 Last Admin: 12/08/18 11:25 Dose: 1 pkt Admin: 12/07/18 14:14 Dose: 1 pkt Admin: 12/07/18 12:26 Dose: Not Given
--- NOTE | 2018-12-08 18:04 | Surgery Consultation ---
Date of Consultation December 08, 2018 Assessment & Plan (1) Bacteremia due to Klebsiella pneumoniae: 68 yo female with metastatic ovarian cancer and klebsiella bacteremia with port in place. - Plan for port removal, possibly tomorrow, per pt scheduling preference - Please make NPO after midnight - Repeat CBC tomorrow, will need to monitor platelet count in setting of potential OR History of Present Illness Reason for Consultation: Port removal Attending Physician: Carlos Wall History of Present Illness Pt is a 68 yo female with metastatic ovarian carcinoma on chemotherapy admitted with Klebsiella bacteremia and pancytopenia. She was recently admitted to [facility] with fever, encephalopathy, and pancytopenia. She received empiric treatment with Vancomycin and Zosyn. Since transfer to [facility] blood cultures resulted (Klebsiella) and she was transitioned to Vancomycin and Imipenem. Source of bacteremia is currently unknown. The patient reports having difficult line placement in the past and has very limited access. Also has a history of previous line infections and reports a prior infected pacemaker. Since admission a PICC line was able to be placed. Current port was placed in July 2018. She denies erythema or drainage from the port site, which is currently in use. The pt denies any significant abdominal pain, she does report chronic abdominal discomfort which she associates with her chemo. Denies constipation, she does have diarrhea. C. diff was negative. She was evaluated by ID, who recommends removal of port. Allergies Allergy/AdvReac Type Severity Reaction Status Date / Time cefaclor AdvReac Mild Yeast Verified 07/16/18 05:59 Infection pioglitazone AdvReac Mild Leg Verified 07/16/18 05:59 Swelling rosiglitazone AdvReac Mild Leg Verified 07/16/18 05:59 Swelling shrimp AdvReac Mild NAUSEA/VOMI Verified 07/16/18 05:59 TING Home Medications Home Medications Medication Instructions Recorded Confirmed Type aspirin 81 mg PO QAM 07/07/18 07/16/18 History atorvastatin 20 mg PO HS 07/07/18 07/16/18 History calcium carbonate-vitamin D3 1 tab PO QAM 07/07/18 07/16/18 History [Os-Ilia 500 + D3] carvedilol 3.125 mg PO BID 07/07/18 07/16/18 History cholecalciferol (vitamin D3) 1,000 unit PO QPM 07/07/18 07/16/18 History [Vitamin D3] estradiol [Vagifem] 10 mcg VAGINAL 2XWK 07/07/18 07/16/18 History fish,bora,flax oils-om3,6,9no1 1 cap PO QAM 07/07/18 07/16/18 History [[place] 3-6-9] furosemide 40 mg PO UD 07/07/18 07/16/18 History glimepiride 2 mg PO HS 07/07/18 07/16/18 History iron,carbonyl-vitamin C [Vitron-C] 1 tab PO DAILY 07/07/18 07/16/18 History lactobacillus combination no.4 3,000 mmu cells PO DAILY 07/07/18 07/16/18 History [Probiotic] lisinopril 10 mg PO QAM 07/07/18 07/16/18 History metformin 1,000 mg PO BID 07/07/18 07/16/18 History omeprazole 40 mg PO QPM 07/07/18 07/16/18 History Tylenol See Label Instructions .ROUTE 07/16/18 07/16/18 History .COMPLEX PRN Patient History Medical History Anxiety Cancer DX 2004 W/ OVARIAN CA - S/P GREGG BSO - 2014 CA TO LT SUPRACLAVICULAR LYMPH NODE - S/P CHEMO - DX 05/2018 - RETURN TO LYMPH NODES (WILL BE TREATED W/ CHEMO) Cholelithiases Congestive heart failure chronic diastolic Diabetes mellitus, type 2 GERD (gastroesophageal reflux disease) Hiatal hernia Hyperlipidemia Hypertension Nonrheumatic aortic (valve) stenosis Noted in cardio note...but normal trileaflet aortic valve noted on 11/2016 [place]. Osteoarthritis Pacemaker BRADYCARDIA - 04/2017 - LAST CHECKED 06/18/18 - [employer] - FOLLOWS W/ DR. SMALLS Valvular disease Moderate mitral regurg, mild-moderate tricuspid regurg. Surgical History History of bilateral tubal ligation History of cardiac cath 10/2014 - [place] - ABN STRESS TEST - NO ANGIOPLASTY/STENT History of carpal tunnel release of both wrists History of herniorrhaphy S/P GREGG-BSO Family History Unknown Coronary artery disease Stroke Cervical cancer Diabetes Social History Current Living Situation: Spouse Feels Safe at Home: Yes Smoking Status: Former smoker Second Hand Exposure: Yes Hx Alcohol Use: No Hx Substance Use: No Beliefs That Will Affect Care: None Communication Ability: Effective Review of Systems Constitutional: as per Subjective / HPI; no fever and no chills Respiratory: no cough and no dyspnea Cardiovascular: no chest pain and no palpitations Gastrointestinal: as per Subjective / HPI and + diarrhea/loose stools; no constipation chronic abdominal discomfort Genitourinary (Female): as per Subjective / HPI Physical Exam 2 Vital Signs (Past 24 Hours): Last Vital Signs Temp 36.5 C 12/08/18 15:27 Pulse 94 H 12/08/18 15:27 Resp 20 12/08/18 15:27 BP 135/76 12/08/18 15:27 Pulse Ox 96 12/08/18 15:27 Constitutional: WD/WN, vitals as above no acute distress Eyes: PERRL, conjunctivae normal, anicteric sclerae ENMT: external ear and nose normal, oropharynx normal Neck: normal visual inspection Respiratory: normal respiratory effort, lungs clear to auscultation Cardiovascular: Rate/Rhythm: regular rate and regular rhythm Gastrointestinal (Abdomen): soft, nontender, nondistended Skin: no rashes, warm and dry Results & Data Laboratory Results 12/08/18 12/08/18 12/08/18 Range/Units 20:07 16:28 12:00 WBC (4.8-10.8) K/uL RBC (4.2-5.4) M/uL Hgb (12.0-16.0) g/dL Hct (37-47) % MCV (80-100) fL MCH (25-34) pg MCHC (32-36) g/dL RDW Std Deviation (36.4-46.3) fL RDW Coeff of Scott (11.5-14.5) % Plt Count (130-400) K/uL Immature Gran % (Auto) % Neut % (Auto) % Lymph % (Auto) % [place] % (Auto) % Eos % (Auto) % Baso % (Auto) % Immature Gran # (Auto) (0.00-0.02) K/uL Neut # (Auto) (1.4-6.5) K/uL Lymph # (Auto) (1.2-3.4) K/uL [place] # (Auto) (0.11-0.59) K/uL Eos # (Auto) (0-0.5) K/uL Baso # (Auto) (0-0.2) K/uL Toxic Granulation Dohle Bodies Platelet Estimate (Normal) Poikilocytosis Anisocytosis Sodium (136-145) mmol/L Potassium (3.5-5.1) mmol/L Chloride (98-107) mmol/L Carbon Dioxide (21-32) mmol/L Anion Gap (3-11) BUN (7-18) mg/dl Creatinine (0.6-1.2) mg/dl Est Cr Clr Drug Dosing ml/min Est GFR ( Amer) Est GFR (Non-Af Amer) BUN/Creatinine Ratio (10-20) Glucose (70-99) mg/dl POC Glucose 101 H 103 H 103 H (70-99) Calcium (8.5-10.1) mg/dl Phosphorus (2.5-4.9) mg/dl Magnesium (1.8-2.4) mg/dl 12/08/18 12/08/18 12/08/18 Range/Units 07:32 06:01 06:01 WBC 6.61 (4.8-10.8) K/uL RBC 2.97 L (4.2-5.4) M/uL Hgb 8.9 L (12.0-16.0) g/dL Hct 27.6 L (37-47) % MCV 92.9 (80-100) fL MCH 30.0 (25-34) pg MCHC 32.2 (32-36) g/dL RDW Std Deviation 58.9 H (36.4-46.3) fL RDW Coeff of Scott 17.4 H (11.5-14.5) % Plt Count 38 L (130-400) K/uL Immature Gran % (Auto) 6.4 % Neut % (Auto) 61.8 % Lymph % (Auto) 22.2 % [place] % (Auto) 8.3 % Eos % (Auto) 0.5 % Baso % (Auto) 0.8 % Immature Gran # (Auto) 0.42 H (0.00-0.02) K/uL Neut # (Auto) 4.09 (1.4-6.5) K/uL Lymph # (Auto) 1.47 (1.2-3.4) K/uL [place] # (Auto) 0.55 (0.11-0.59) K/uL Eos # (Auto) 0.03 (0-0.5) K/uL Baso # (Auto) 0.05 (0-0.2) K/uL Toxic Granulation 1+ Dohle Bodies 1+ Platelet Estimate Decreased (Normal) Poikilocytosis Present Anisocytosis Present Sodium 140 (136-145) mmol/L Potassium 4.0 (3.5-5.1) mmol/L Chloride 111 H (98-107) mmol/L Carbon Dioxide 23 (21-32) mmol/L Anion Gap 7.0 (3-11) BUN 12 (7-18) mg/dl Creatinine 0.77 (0.6-1.2) mg/dl Est Cr Clr Drug Dosing 74.9 ml/min Est GFR ( Amer) 92.0 Est GFR (Non-Af Amer) 79.3 BUN/Creatinine Ratio 15.4 (10-20) Glucose 82 (70-99) mg/dl POC Glucose 84 (70-99) Calcium 8.2 L (8.5-10.1) mg/dl Phosphorus 2.5 D (2.5-4.9) mg/dl Magnesium 1.4 L (1.8-2.4) mg/dl
[2018-12-09] MEDS: LOPERAMIDE HCL 2 MG CAP PO SCH ×5 (01:34→20:59)
[2018-12-09 06:48] LABS: Mean Corpuscular Hgb Conc 32.6 g/dL (32-36)
[2018-12-09 07:01] LABS: Hematocrit (blood only) 26.1 % (37-47); Hemoglobin 8.5 g/dL (12.0-16.0); Mean Corpuscular Volume 91.6 fL (80-100); RDW Coefficient of Variation 17.4 % (11.5-14.5); RDW Standard Deviation 58.4 fL (36.4-46.3); Red Blood Count 2.85 M/uL (4.2-5.4); White Blood Count 7.21 K/uL (4.8-10.8)
[2018-12-09 07:09] LABS: Platelet Count 49 K/uL (130-400)
[2018-12-09 07:18] LABS: BUN Creatinine Ratio 16.6 (10-20); Calcium 8.1 mg/dl (8.5-10.1); Creatinine Clr Calc Pharmacy 80.1 ml/min; Est GFR (African American) 99.7; Est GFR (Non-African American) 86.1; Magnesium 1.3 mg/dl (1.8-2.4); Phosphorus 2.3 mg/dl (2.5-4.9); Potassium 4.2 mmol/L (3.5-5.1)
[2018-12-09 07:20] LABS: Basophils # (auto) 0.02 K/uL (0-0.2); Basophils % (auto) 0.3 %; Eosinophils # (auto) 0.01 K/uL (0-0.5); Eosinophils % (auto) 0.1 %; Immature Granulocytes # (auto) 0.16 K/uL (0.00-0.02); Immature Granulocytes % (auto) 2.2 %; Lymphocytes # (auto) 1.32 K/uL (1.2-3.4); Lymphocytes % (auto) 18.3 %; Macrocytosis Present; Monocytes # (auto) 0.59 K/uL (0.11-0.59); Monocytes % (auto) 8.2 %; Neutrophils # (auto) 5.11 K/uL (1.4-6.5); Neutrophils % (auto) 70.9 %; Polychromasia 1+
[2018-12-09] MEDS: INSULIN ASPART 100 UNITS/ML 3 ML PEN SC SCH ×4 (08:22→20:54)
[2018-12-09] MEDS: NSS + 20MEQ KCL 20 MEQ/1,000 ML BAG IV SCH (08:23)
--- NOTE | 2018-12-09 09:36 | Progress Note ---
DATE: 12/09/2018 MEDICAL ONCOLOGY FOLLOWUP NOTE DIAGNOSES: 1. Neutropenic fever. 2. Pancytopenia, attributable to chemotherapeutic effect. 3. Diabetes mellitus type 2. 4. Hypertension 5. Diarrhea. 6. Metastatic ovarian cancer. SUBJECTIVE: I visited with Liliya at bedside this morning. She is making slow but steady progress, continues to struggle with mucositis and minimal p.o. intake. The patient readily admits she is terribly deconditioned and physical therapy has been consulted to help her with strengthening. In regards to her treatment moving forward, engaged in lengthy discussion about long-term goals. Liliya has suffered with this disease for many years and has been heavily pretreated. There is also suggestion on her most recent radiographic studies, she is indeed progressing despite our efforts. Goal in short term obviously is to establish medical stability and then reconvene as an outpatient to discuss therapy versus supportive care moving forward. Liliya was made clear she is concerned with her and his ability to cope moving forward. Psychiatry visited with Liliya and has recommended a low-dose SSRI. I see no contraindication as her platelets should recover spontaneously over time. Nursing reports no overnight difficulties otherwise. PHYSICAL EXAMINATION: GENERAL: Liliya is a pleasant 68-year-old female patient, lying supine in no acute distress. VITAL SIGNS: Current temperature 36.7, pulse 87, respiratory rate 16, blood pressure 110/74. SKIN: Again without rash or lesion. HEENT: Oral mucosa looks a little better, remains dry. Mucositis is definitely resolving. NECK: Supple. HEART: Regular rate and rhythm. LUNGS: Clear to auscultation bilaterally. ABDOMEN: Soft, nontender, nondistended. EXTREMITIES: No clubbing, cyanosis or edema. NEUROLOGIC: The patient is grossly intact. LABORATORY DATA: WBC count 7210, hemoglobin 8.5, platelet count 49,000. Sodium 140, potassium 4.2, chloride 111, carbon dioxide 24, creatinine 0.72, BUN 12. Magnesium 1.3, phosphorus 2.3. IMPRESSION: 1. Neutropenic fever. 2. Electrolyte dysfunction. 3. Pancytopenia, attributable to chemotherapeutic effect. 4. Metastatic ovarian cancer. 5. Type 2 diabetes mellitus. 6. Hypertension. PLAN: Liliya was seen and examined at bedside this morning. She seems to be making slow and steady progress. According to the hospitalist note, ID is considering removal of port. As far as I can see the blood cultures were not positive during this admission, however, I am aware of the patient had a gram-negative bacteremia in the past. Generally speaking, when there is gram-negative bacteremia involved, port should be removed. PICC line has been placed. Engaged in lengthy discussion with Liliya about treatment moving forward. The patient has been heavily pretreated and advised her that any treatment moving forward, she should expect a lesser response to treatment. Life quality is important to Liliya and I have encouraged her to engage in discussion with regarding long-term goals. She obviously needs aggressive physical therapy because of deconditioning. Will continue to follow her periodically during her hospital stay. Encouraged her to increase her p.o. intake, particularly protein. Electrolytes should also be replaced. Thank you very much for assisting us in the care of this very pleasant patient and again will continue to follow her periodically.
[2018-12-09] MEDS: PANTOprazole 40 MG TAB PO SCH ×3 (10:32→20:59)
[2018-12-09] MEDS: ALUMINUM/MAGNESIUM SUSP 50 ML, DiphenhydrAMINE Syrup 125 MG, LIDOCAINE HCL 2% VISCOUS 4... PO SCH ×5 (10:32→20:59)
[2018-12-09] MEDS ORDERED: POTASSIUM PHOS 3 MMOL/1 ML INFUSION IV STA (10:33)
--- NOTE | 2018-12-09 10:56 | Hospitalist Progress Note ---
Date of Service December 09, 2018 Assessment & Plan (1) Febrile neutropenia: This chemotherapy associated febrile neutropenia. Resolved Gram-negative bacteremia (Klebsiella) likely from translocation from gut patient has been changed to ertapenem therapy infectious disease consult is considering removal of line, however the patient states she is in the past she is been very difficult to have PICC line placed and difficult to have her port placed. Dr. Bradshaw is her typical surgeon and likely can confer with him during the week to determine if she truly has a challenge to have a line placed. This may alter infectious disease plan and duration of intravenous antibiotic therapy diarrhea C. difficile test was performed and is negative The patient did receive Neupogen with good response of her bone marrow. 12/09 Patient has edgardo negative bacteremia. Due to rate of failure and relapse, patient will like need PORT removed. Procedure is scheduled for tomorrow AM. Informed . (2) Pancytopenia: cHemotherapy associated pancytopenia. Bone marrow rescue by Neupogen, platelet count is slowly improving: currently at 38 (3) Diabetes mellitus, type 2: Pharmacy managed diabetic protocol we will continue to hold her typical glimepiride metformin especially while having poor p.o. intake (4) Hypertension: Patient has some history of coronary disease she is typically on aspirin atorvastatin Coreg and Lasix plus lisinopril these will remain held and if we re -begin these medications possibly targeting Coreg Her BP is at goal. (5) Diarrhea: diarrhea persists, likely related to chemotherapy continue to hydrate, will add antidiarrheals and fiber Patient has electrolyte disturbances hypomagnesemia hypophosphatemia these were repleted 12/07; (6) DVT prophylaxis: Chemoprophylaxis is contraindicated with the patient's thrombocytopenia likely external device may promote bruising Spent 35 minutes in management of patient. Discussing with consultants and reviewing chart, and updating . Subjective Patient reports that her diarrhea has improved with the loperamide that was increased. Patient is now agreeable to having port removed. She denies any new symptoms. Updated . Physical Exam 2 Vital Signs (Past 24 Hours): Last Vital Signs Temp 36.7 C 12/09/18 07:51 Pulse 87 12/09/18 07:51 Resp 16 12/09/18 07:51 BP 110/74 12/09/18 07:51 Pulse Ox 98 12/09/18 07:51 Physical Exam: The patient appeared chronically ill Vital signs as documented. Head exam is unremarkable. normocephalic, atraumatic, alopecia Oral mucous membranes: appear somewhat dry. Neck is without jugular venous distension, thyromegaly, or lymphademopathy Lungs are clear to auscultation and percussion. Cardiac exam reveals Rhythm is regular. First and second heart sounds normal. Abdominal exam reveals general mild diffuse tenderness no rebound no guarding, normal bowel sounds, no masses, no organomegaly Extremities are nonedematous and both pedal pulses are present Neurologic exam is A&Ox3, no focal deficits, strength is equal bilateral Psychologically does not appear depressed, but patient is requesting to see psych
[2018-12-09] MEDS ORDERED: POTASSIUM PHOSPHATE 9 MMOL in SODIUM CHLORIDE 0.9% 250 ML IV ONE (11:00)
--- NOTE | 2018-12-09 11:19 | Surgery Progress Note ---
Date of Service December 09, 2018 Assessment & Plan (1) Bacteremia due to Klebsiella pneumoniae: Pt is a 68 yo female with metastatic ovarian carcinoma on chemotherapy admitted with Klebsiella bacteremia and pancytopenia. pt requesting Dr. Bradshaw to remove port. Will add patient to OR schedule for tomorrow. Reviewed port removal procedure with patient including risks of procedure. Pt can have full liquids today, but will be NPO after midnight. Will recheck plt levels in AM. Supervising Physician Co-Signing Physician Notes Patient seen and examined, labs reviewed, agree with above. 68-year-old female known to me from prior port placement and laparoscopic cholecystectomy. She was transferred from [facility] as she has gram-negative sepsis. Overall feeling better. Infectious disease recommending removal of port. On exam port is functioning well and incision well-healed on the left chest. Platelets noted to be 49k. Plan for port removal (left) Wrist the procedure were discussed to include but not limited to bleeding, infection, port fracture, seroma/hematoma, need for future more extensive surgery, demonstrated structures, and the risks of anesthesia Plan for or tomorrow, n.p.o. after midnight, repeat CBC first thing in the morning to make sure platelets are adequate Patient has a PICC line in place Plan of care discussed the patient, all questions answered, patient expressed understanding agrees the plan of care as stated. Subjective Pt is a 68 yo female with metastatic ovarian carcinoma on chemotherapy admitted with Klebsiella bacteremia and pancytopenia. Pt requesting Dr. Bradshaw for port removal. Physical Exam 2 Vital Signs (Past 24 Hours): Last Vital Signs Temp 36.6 C 12/09/18 11:17 Pulse 92 H 12/09/18 11:17 Resp 18 12/09/18 11:17 BP 114/76 12/09/18 11:17 Pulse Ox 97 12/09/18 11:17
[2018-12-09] MEDS: PSYLLIUM 58.6% POWDER PACKET PO SCH (11:28)
[2018-12-09] MEDS: MAGNESIUM SULFATE / D5W 1 GM/100 ML BAG IV SCH ×2 (11:53→13:00)
[2018-12-09] MEDS: ERTAPENEM SODIUM 1,000 MG in SODIUM CHLORIDE 0.9% 50 ML IV SCH (16:10)
--- NOTE | 2018-12-09 16:33 | Infectious Disease Progress Nt ---
Date of Service December 09, 2018 Assessment & Plan (1) Bacteremia due to Klebsiella pneumoniae: Klebsiella bacteremia in the setting of indwelling a port. Patient have port removed, IV placed. Continue on ertapenem. Likely in the range of 10 days total IV antibiotics. Will follow. Subjective Patient seen in follow-up for Klebsiella bacteremia. Plans for removal of port. Patient currently afebrile, tolerating antibiotic without apparent difficulty. Follow-up blood cultures no growth to date. Review of Systems All systems reviewed & are unremarkable except as noted in HPI & below Physical Exam Vital Signs (Past 24 Hours): Last Vital Signs Temp 36.5 C 12/09/18 15:34 Pulse 94 H 12/09/18 15:34 Resp 20 12/09/18 15:34 BP 128/72 12/09/18 15:34 Pulse Ox 95 12/09/18 15:34 Constitutional: WD/WN, vitals as above comfortable; no acute distress Eyes: PERRL, conjunctivae normal, anicteric sclerae ENMT: external ear and nose normal, oropharynx normal Neck: trachea midline, no thyromegaly neck nontender Respiratory: normal respiratory effort, lungs clear to auscultation normal percussion; no respiratory distress Cardiovascular: Rate/Rhythm: regular rate and regular rhythm Heart Sounds: normal S1 and normal S2; no gallop, no murmur and no cardiac rub Gastrointestinal (Abdomen): normal bowel sounds, soft, nontender, no hepatosplenomegaly Musculoskeletal: no cyanosis or clubbing, extremities motor strength 5/5 No spinal tenderness, no joint swelling or erythema Skin: no rashes, warm and dry no lesions Neurologic: moves all extremities and awake; no focal motor deficits Motor/Sensory: no sensory deficit Psychiatric: A+Ox3, euthymic affect Lymphatic: no cervical or axillary lymphadenopathy no inguinal lymphadenopathy Results & Data Laboratory Results Short CBC 12/09/18 Range/Units 05:43 WBC 7.21 (4.8-10.8) K/uL Hgb 8.5 L (12.0-16.0) g/dL Hct 26.1 L (37-47) % Plt Count 49 L (130-400) K/uL BMP 12/09/18 05:43 Sodium 140 Potassium 4.2 Chloride 111 H Carbon Dioxide 24 BUN 12 Creatinine 0.72 Glucose 103 H Calcium 8.1 L Diagnostic Findings Microbiology 12/06/18 09:11 Blood Blood Culture - Preliminary No growth to date. 12/06/18 09:02 Blood Blood Culture - Preliminary No growth to date.
[2018-12-10] MEDS: LOPERAMIDE HCL 2 MG CAP PO SCH ×4 (01:52→19:26)
[2018-12-10 06:31] LABS: Hematocrit (blood only) 27.8 % (37-47); Hemoglobin 8.9 g/dL (12.0-16.0); Mean Corpuscular Volume 92.7 fL (80-100); RDW Coefficient of Variation 17.8 % (11.5-14.5); RDW Standard Deviation 59.4 fL (36.4-46.3); White Blood Count 6.77 K/uL (4.8-10.8)
[2018-12-10 06:33] LABS: Mean Platelet Volume 11.2 fL (7.4-10.4); Platelet Count 55 K/uL (130-400)
[2018-12-10 07:08] LABS: BUN Creatinine Ratio 14.9 (10-20); Calcium 8.4 mg/dl (8.5-10.1); Est GFR (African American) 103.7; Est GFR (Non-African American) 89.4; Magnesium 1.5 mg/dl (1.8-2.4)
[2018-12-10 07:12] LABS: Phosphorus 2.9 mg/dl (2.5-4.9)
[2018-12-10 07:17] LABS: Basophils # (auto) 0.02 K/uL (0-0.2); Basophils % (auto) 0.3 %; Immature Granulocytes % (auto) 1.5 %; Lymphocytes # (auto) 1.19 K/uL (1.2-3.4); Lymphocytes % (auto) 17.6 %; Monocytes # (auto) 0.62 K/uL (0.11-0.59); Monocytes % (auto) 9.2 %; Neutrophils # (auto) 4.84 K/uL (1.4-6.5); Neutrophils % (auto) 71.4 %; Poikilocytosis Present; Toxic Granulation 1+
[2018-12-10] MEDS: PANTOprazole 40 MG TAB PO SCH ×2 (07:30→19:26)
[2018-12-10] MEDS ORDERED: NURSING DECISION MEDICATION ONE ×2 (08:12→15:19)
[2018-12-10] MEDS: INSULIN ASPART 100 UNITS/ML 3 ML PEN SC SCH ×3 (08:12→20:14)
[2018-12-10] MEDS: ALUMINUM/MAGNESIUM SUSP 50 ML, DiphenhydrAMINE Syrup 125 MG, LIDOCAINE HCL 2% VISCOUS 4... PO SCH ×5 (08:13→19:26)
[2018-12-10] MEDS ORDERED: ATROPINE SULFATE 0.1 MG/ML 10ML SYR IV PRN (10:14)
[2018-12-10] MEDS ORDERED: fentaNYL citrate 100 MCG/2 ML VIAL IV PRN (10:14)
[2018-12-10] MEDS ORDERED: ePHEDrine sulfate 50 MG/ML AMP IV PRN (10:14)
[2018-12-10] MEDS ORDERED: ONDANSETRON INJ 2 MG/ML 2 ML VIAL IV PRN (10:14)
[2018-12-10] MEDS: PSYLLIUM 58.6% POWDER PACKET PO SCH (10:26)
[2018-12-10] MEDS ORDERED: INSULIN ASPART 100 UNITS/ML 3 ML PEN SC SCH (12:00)
--- NOTE | 2018-12-10 12:06 | Anesthesiology Consultation ---
Date of Service December 10, 2018 Assessment & Plan (1) Encounter for pre-operative examination: Chart Review Chart Review: Acceptable Risk for Surgery and Patient NOT seen in Pre Admission Testing Consults Requested none History Surgery Operation Date: 12/10/18 12:20 Proposed Procedures p Infusaport Removal - Jose Carlos Bradshaw DO, FACS Height/Weight Height: 5 ft 1 in Weight: 98.8 kg Allergies Allergy/AdvReac Type Severity Reaction Status Date / Time cefaclor AdvReac Mild Yeast Verified 07/16/18 05:59 Infection pioglitazone AdvReac Mild Leg Verified 07/16/18 05:59 Swelling rosiglitazone AdvReac Mild Leg Verified 07/16/18 05:59 Swelling shrimp AdvReac Mild NAUSEA/VOMI Verified 07/16/18 05:59 TING Medications Home Medications Medication Instructions Recorded Confirmed Last Taken aspirin 81 mg PO QAM 07/07/18 07/16/18 07/09/18 atorvastatin 20 mg PO HS 07/07/18 07/16/18 07/15/18 16:30 calcium carbonate-vitamin D3 1 tab PO QAM 07/07/18 07/16/18 07/15/18 07:00 [Os-Ilia 500 + D3] carvedilol 3.125 mg PO BID 07/07/18 07/16/18 07/16/18 03:30 cholecalciferol (vitamin D3) 1,000 unit PO QPM 07/07/18 07/16/18 07/15/18 16:30 [Vitamin D3] estradiol [Vagifem] 10 mcg VAGINAL 2XWK 07/07/18 07/16/18 07/13/18 22:00 fish,bora,flax oils-om3,6,9no1 1 cap PO QAM 07/07/18 07/16/18 07/15/18 07:00 [[place] 3-6-9] furosemide 40 mg PO UD 07/07/18 07/16/18 07/14/18 07:00 glimepiride 2 mg PO HS 07/07/18 07/16/18 07/15/18 22:15 iron,carbonyl-vitamin C [Vitron-C] 1 tab PO DAILY 07/07/18 07/16/18 07/15/18 12:00 lactobacillus combination no.4 3,000 mmu cells PO DAILY 07/07/18 07/16/1807/15/18 12:00 [Probiotic] lisinopril 10 mg PO QAM 07/07/18 07/16/18 07/15/18 07:00 metformin 1,000 mg PO BID 07/07/18 07/16/18 07/15/18 16:30 omeprazole 40 mg PO QPM 07/07/18 07/16/18 07/16/18 03:30 Tylenol See Rx Instructions .ROUTE 07/16/18 07/16/18 07/15/18 22:15 .COMPLEX PRN Active Medications Generic Name Dose Route Start Last Admin Trade Name Freq PRN Reason Stop Dose Admin Al Hydrox/Mg Hydrox/ 0 ml 12/05/18 13:00 12/10/18 11:11 Simethicone 50 ml/ PO 01/04/19 12:59 5 ml Diphenhydramine HCl 125 mg/ QID EUNIEC Administration Lidocaine HCl 40 ml/ Sucralfate 10,000 mg/ BARCODE IDENTIFIER 1 ea Potassium Chloride/Sodium Chloride 20 meq in 1,000 mls @ 80 mls/hr 12/04/18 11:15 12/09/18 14:24 Normal Saline W/20 Meq Kcl IV 01/03/19 11:14 80 mls/hr .[id number] EUNICE Infusion Ertapenem 1,000 mg/ Sodium 60 mls @ 100 mls/hr 12/06/18 15:30 12/09/18 16:46 Chloride IV 12/20/18 15:29 Infused Q24H [facility] Infusion Protocol Insulin Aspart 0 units 12/10/18 12:00 12/10/18 11:28 Novolog Flexpen SC 01/09/19 11:59 Not Given Q6 [facility] Protocol Loperamide HCl 4 mg 12/08/18 14:00 12/10/18 07:29 Imodium PO 01/07/19 13:59 Not Given Q6H [facility] Miconazole Nitrate 1 appln 12/06/18 19:07 12/08/18 05:30 Desenex EXT 01/05/19 19:06 1 appln PRN PRN Administration Affected Skin Folds Ondansetron HCl 4 mg 12/06/18 08:57 12/06/18 18:07 Zofran IV 01/05/19 08:56 4 mg Q4H PRN Administration Nausea Pantoprazole Sodium 40 mg 12/04/18 21:00 12/10/18 07:30 Protonix PO 01/03/19 20:59 Not Given BID ON LICENSE OF [facility] Psyllium Hydrophilic Mucilloid 1 pkt 12/07/18 11:00 12/10/18 10:26 Metamucil PO 01/06/19 10:59 Not Given DAILY@1100 ON LICENSE OF [facility] Protocol Past Medical History Medical History Cholecystectomy planned Jun 2018. Easy airway Anxiety Cholelithiases Congestive heart failure chronic diastolic Diabetes mellitus, type 2 GERD (gastroesophageal reflux disease) Hiatal hernia Hyperlipidemia Hypertension Nonrheumatic aortic (valve) stenosis Noted in cardio note...but normal trileaflet aortic valve noted on 11/2016 [place]. Osteoarthritis Pacemaker BRADYCARDIA - 04/2017 - LAST CHECKED 06/18/18 - [employer] - FOLLOWS W/ DR. SMALLS Valvular disease Moderate mitral regurg, mild-moderate tricuspid regurg. Past Family History Family History Unknown Coronary artery disease Stroke Cervical cancer Diabetes Past Surgical History Surgical History Cancer DX 2004 W/ OVARIAN CA - S/P GREGG BSO - 2014 CA TO LT SUPRACLAVICULAR LYMPH NODE - S/P CHEMO - DX 05/2018 - RETURN TO LYMPH NODES (WILL BE TREATED W/ CHEMO) History of bilateral tubal ligation History of cardiac cath 10/2014 - [place] - ABN STRESS TEST - NO ANGIOPLASTY/STENT History of carpal tunnel release of both wrists History of herniorrhaphy S/P GREGG-BSO Past Anesthesia History No Hx of Anesthesia Complications and No Family Hx of Anesthesia Complications History of PONV No Motion Sickness Screening History of Motion Sickness: No Social History Smoking Status: Former smoker Hx Alcohol Use: No Hx Substance Use: No substance use type: does not use Physical Exam Vital Signs Last Vital Signs Temp 36.4 C L 12/10/18 11:19 Pulse 89 12/10/18 11:19 Resp 20 12/10/18 11:19 BP 94/68 L 12/10/18 11:19 Pulse Ox 98 12/10/18 11:19 Testing Electrocardiogram Date: 12/03/18 a sensed v paced Laboratory Results 12/10/18 05:34 12/10/18 05:34 Blood Type A Negative 12/04/18 10:36 Antibody Screen NEGATIVE 12/04/18 10:36 Hemoglobin A1c 5.5 % (4.5-5.6) 12/06/18 05:40 12/06/18 09:11 Blood Culture - Preliminary Blood No growth to date. 12/06/18 09:02 Blood Culture - Preliminary Blood No growth to date. 12/10/18 12/10/18 11:23 07:27 POC Glucose 88 95
[2018-12-10] MEDS ORDERED: MIDAZOLAM HCL 1 MG/ML 2ML VIAL ONE (12:27)
[2018-12-10] MEDS ORDERED: fentaNYL citrate 100 MCG/2 ML VIAL ONE (12:28)
[2018-12-10] MEDS ORDERED: BUPIVACAINE 0.5 % 5 MG/1 ML MPF 30ML VIAL ONE (12:36)
[2018-12-10] MEDS ORDERED: LIDOCAINE/EPINEPHRINE 1% 20 ML VIAL ONE (12:36)
--- NOTE | 2018-12-10 12:37 | Surgery Progress Note ---
Date of Service December 10, 2018 Assessment & Plan (1) Bacteremia due to Klebsiella pneumoniae: Klebsiella bacteremia and concern for port infection Plan for port removal (left) Risks reviewed, questions answered, agrees to proceed with surgery as planned Dispo per primary team postop Present on Admission?: Yes Subjective 68-year-old female with Klebsiella bacteremia, and need for port removal. N.p.o. since midnight, no other changes. Physical Exam Vital Signs (Past 24 Hours): Last Vital Signs Temp 36.5 C 12/10/18 12:05 Pulse 97 H 12/10/18 12:05 Resp 26 H 12/10/18 12:05 BP 132/84 12/10/18 12:05 Pulse Ox 97 12/10/18 12:05 Constitutional: WD/WN, vitals as above Skin: Port in place in left upper chest
[2018-12-10] MEDS ORDERED: PROPOFOL IV EMULSION 10 MG/ML 20 ML VIAL IV ONE (13:17)
[2018-12-10] MEDS ORDERED: LIDOCAINE HCL 2% 2 ML VIAL/AMP(20MG/ML) INFIL ONE (13:17)
[2018-12-10] MEDS ORDERED: ONDANSETRON INJ 2 MG/ML 2 ML VIAL ONE (13:17)
--- NOTE | 2018-12-10 13:24 | Operative Report ---
Post Operative Report Pre & Post Diagnosis Operation Date: 12/10/18 12:20 Pre-Op Diagnosis: Metastatic Ovarian Cancer, Infected Infusaport Post-Op Diagnosis: Metastatic Ovarian Cancer, Infected Infusaport Procedure Operation Date: 12/10/18 12:20 Actual Procedures p Infusaport Removal(Left) - Jose Carlos Bradshaw DO, LETA Surgeon Jose Carlos Bradshaw DO, LETA Duster Tender Melissa Pond Estimated Blood Loss 1 Findings Consistent with Post-Op Diagnosis Port removed intact Specimens Catheter tip for culture Anesthesia Type MAC Complications none Disposition Accompanied Patient To Recovery: No Disposition: Recovery Room Indications 68-year-old female with history of metastatic ovarian cancer and port placement by myself several months ago, now with Klebsiella bacteremia concern for port infection, plan for port removal. The risks of the procedure were discussed, all questions were answered, and the patient agreed to proceed with surgery as planned. Description of Procedure The patient was properly identified, consented, and taken to the operating room where she was placed in the supine position. Sedation with monitored anesthesia care was induced. SCDs and a safety belt were placed. Preoperative antibiotics were administered. The patient's left chest was prepped and draped in the standard sterile fashion. Surgical timeout was performed and all parties were in agreement that this was the correct patient and procedure to be performed and we continued as planned. Local anesthetic was injected along the skin incision. A elliptical incision was made to excise the old scar overlying the port and deepened down through the subcutaneous tissue with electrocautery. The sutures holding the port in place were cut and removed. The port was then removed and pressure was held on the left internal jugular. Hemostasis was good. The tip of the catheter was sent for culture. The wound was irrigated and hemostasis was confirmed. The skin was closed with interrupted 3-0 Vicryl deep dermal sutures, followed by 4-0 Monocryl running subcuticular suture. Dermabond was placed over the wound. The patient was extubated in the operating room and taken to the PACU where she recovered without apparent incident. All sponge, instrument and needle counts were correct at the conclusion of the procedure. The patient tolerated the procedure well. The physician's assistant professor of sociology was present and scrubbed for the entire the case. She was critical in positioning the patient, prepping and draping, retraction exposure, removal of port, closure incisions, placement of the dressings. I attest to the content of the Intraoperative Record and any orders documented therein. Any exceptions are noted below.
[2018-12-10] MEDS ORDERED: LOPERAMIDE HCL 2 MG CAP PO PRN (13:40)
[2018-12-10] MEDS ORDERED: ACETAMINOPHEN 1,000 MG/100 ML VIAL IV PRN (13:49)
--- NOTE | 2018-12-10 14:14 | Anesthesiology Progress Note ---
Date of Service December 10, 2018 Anesthesia Post Procedure Vital Signs Vital Signs: Temp Pulse Pulse Resp BP Pulse Ox 12/10/18 14:00 36.6 C 91 H 18 119/79 96 12/10/18 13:50 36.6 C 94 H 18 128/77 96 12/10/18 13:40 94 H 18 116/80 100 12/10/18 13:33 36.8 C 97 H 18 129/80 96 12/10/18 12:05 36.5 C 97 H 26 H 132/84 97 12/10/18 11:19 36.4 C L 89 20 94/68 L 98 12/10/18 07:30 36.5 C 88 20 106/73 97 12/10/18 04:00 36.6 C 90 18 123/82 96 12/09/18 23:35 36.6 C 90 20 121/78 97 12/09/18 19:59 36.4 C L 89 20 125/83 99 12/09/18 15:34 36.5 C 94 H 20 128/72 95 Notes Mental Status: alert / awake / arousable and participated in evaluation Patient Amnestic to Procedure: Yes Nausea / Vomiting: adequately controlled Pain: adequately controlled Airway Patency, RR, SpO2: stable & adequate BP & HR: stable & adequate Hydration State: stable & adequate Anesthetic Complications: no major complications apparent and Pt Satisfied with anesthetic care
[2018-12-10] MEDS: ERTAPENEM SODIUM 1,000 MG in SODIUM CHLORIDE 0.9% 50 ML IV SCH (15:40)
--- NOTE | 2018-12-10 16:20 | Infectious Disease Progress Nt ---
Date of Service December 10, 2018 Assessment & Plan (1) Bacteremia due to Klebsiella pneumoniae: Klebsiella bacteremia in the setting of indwelling a- port, now status post port removal. Patient to continue on IV ertapenem, likely 1 more week. Will follow. Subjective Patient seen in follow-up for Klebsiella bacteremia. Now status post removal of port. Patient currently afebrile, tolerating antibiotic without apparent difficulty. Follow-up blood cultures no growth to date. Review of Systems All systems reviewed & are unremarkable except as noted in HPI & below Physical Exam Vital Signs (Past 24 Hours): Last Vital Signs Temp 36.6 C 12/10/18 15:52 Pulse 93 H 12/10/18 15:52 Resp 20 12/10/18 15:52 BP 126/79 12/10/18 15:52 Pulse Ox 96 12/10/18 15:52 Constitutional: WD/WN, vitals as above comfortable; no acute distress Eyes: PERRL, conjunctivae normal, anicteric sclerae ENMT: external ear and nose normal, oropharynx normal Ears: no external ear abnormality Nose: no external nose abnormality Neck: trachea midline, no thyromegaly neck nontender Respiratory: normal respiratory effort, lungs clear to auscultation normal percussion; no respiratory distress Cardiovascular: Rate/Rhythm: regular rate and regular rhythm Heart Sounds: normal S1 and normal S2; no gallop, no murmur and no cardiac rub Gastrointestinal (Abdomen): normal bowel sounds, soft, nontender, no hepatosplenomegaly Musculoskeletal: no cyanosis or clubbing, extremities motor strength 5/5 Head/Neck/Chest: normocephalic and head atraumatic Skin: no rashes, warm and dry no lesions Neurologic: moves all extremities and awake; no focal motor deficits Motor/Sensory: no sensory deficit Psychiatric: A+Ox3, euthymic affect Lymphatic: no cervical or axillary lymphadenopathy no inguinal lymphadenopathy Results & Data Laboratory Results Short CBC 12/10/18 Range/Units 05:34 WBC 6.77 (4.8-10.8) K/uL Hgb 8.9 L (12.0-16.0) g/dL Hct 27.8 L (37-47) % Plt Count 55 L (130-400) K/uL BMP 12/10/18 05:34 Sodium 139 Potassium 4.0 Chloride 110 H Carbon Dioxide 23 BUN 10 Creatinine 0.69 Glucose 99 Calcium 8.4 L Diagnostic Findings Microbiology 12/06/18 09:11 Blood Blood Culture - Preliminary No growth to date. 12/06/18 09:02 Blood Blood Culture - Preliminary No growth to date.
--- NOTE | 2018-12-10 22:56 | Hospitalist Progress Note ---
Date of Service December 10, 2018 Assessment & Plan (1) Febrile neutropenia: This chemotherapy associated febrile neutropenia. Resolved Gram-negative bacteremia (Klebsiella) likely from translocation from gut patient has been changed to ertapenem therapy infectious disease consult is considering removal of line, however the patient states she is in the past she is been very difficult to have PICC line placed and difficult to have her port placed. Dr. Bradshaw is her typical surgeon and likely can confer with him during the week to determine if she truly has a challenge to have a line placed. This may alter infectious disease plan and duration of intravenous antibiotic therapy diarrhea C. difficile test was performed and is negative The patient did receive Neupogen with good response of her bone marrow. 12/10 Patient has edgardo negative bacteremia. Port was removed. Patient has an ultrasound guided IV site. Will need to complete 2 weeks of ertapenem. (2) Pancytopenia: cHemotherapy associated pancytopenia. Bone marrow rescue by Neupogen, platelet count is slowly improving: Appears to have resolved. will monitor. (3) Diabetes mellitus, type 2: Pharmacy managed diabetic protocol we will continue to hold her typical glimepiride metformin especially while having poor p.o. intake (4) Hypertension: Patient has some history of coronary disease she is typically on aspirin atorvastatin Coreg and Lasix plus lisinopril these will remain held and if we re-begin these medications possibly targeting Coreg Her BP is at goal. (5) Diarrhea: diarrhea resolved, with loperamide at max doser. likely related to chemotherapy continue to hydrate, will add antidiarrheals and fiber Pharmacy suggested to decrease dose as she was on max. Will try 12 mg daily. (6) DVT prophylaxis: Chemoprophylaxis is contraindicated with the patient's thrombocytopenia likely external device may promote bruising Spent 25 minutes in management of patient. Subjective Patient reports feeling well. She has had no issues with the port being removed. Denies any new episodes of diarrhea. Physical Exam Vital Signs (Past 24 Hours): Last Vital Signs Temp 36.6 C 12/10/18 19:07 Pulse 99 H 12/10/18 19:07 Resp 20 12/10/18 19:07 BP 119/76 12/10/18 19:07 Pulse Ox 95 12/10/18 19:07
[2018-12-11] MEDS: ONDANSETRON INJ 2 MG/ML 2 ML VIAL IV PRN (08:14)
[2018-12-11] MEDS: LOPERAMIDE HCL 2 MG CAP PO SCH ×4 (08:18→20:58)
[2018-12-11] MEDS: ALUMINUM/MAGNESIUM SUSP 50 ML, DiphenhydrAMINE Syrup 125 MG, LIDOCAINE HCL 2% VISCOUS 4... PO SCH ×4 (08:31→20:59)
[2018-12-11] MEDS: PANTOprazole 40 MG TAB PO SCH ×2 (08:32→20:58)
[2018-12-11 08:47] LABS: Calcium 8.9 mg/dl (8.5-10.1); Creatinine Clr Calc Pharmacy 80.3 ml/min; Est GFR (African American) 99.7; Est GFR (Non-African American) 86.1; Magnesium 1.5 mg/dl (1.8-2.4); Potassium 4.1 mmol/L (3.5-5.1)
[2018-12-11 09:04] LABS: Phosphorus 3.6 mg/dl (2.5-4.9)
--- NOTE | 2018-12-11 09:18 | Progress Note ---
DATE: 12/11/2018 DIAGNOSES: 1. Neutropenic fever. 2. Pancytopenia attributable to chemotherapeutic effect. 3. Mucositis. 4. Diabetes mellitus type 2. 5. Hypertension. 6. Diarrhea. 7. Metastatic ovarian cancer. SUBJECTIVE: Visited with the patient at bedside this morning. Reviewed recent clinical events including removal of MediPort device. PICC line was placed in the left upper extremity, which infuses, but does not draw blood. Her mucositis has improved. She is slowly increasing p.o. intake. The patient relates no significant pain today. The patient has not gotten out of bed much and needs to work on strengthening. Her peripheral blood counts are slowly improving. Nursing reports no overnight difficulties. OBJECTIVE: GENERAL: The patient looks a bit brighter today. VITAL SIGNS: Temperature 36.9, pulse 89, respiratory rate 20, blood pressure 119/78. SKIN: Without rash or lesion. HEENT: ____ NECK: Supple. Trachea midline. HEART: Regular rate and rhythm. LUNGS: Clear to auscultation bilaterally. ABDOMEN: Somewhat distended. EXTREMITIES: Trace peripheral edema with associated pedal edema. NEUROLOGIC: Grossly intact. LABORATORY DATA: From 12/10/2018, WBC count 6770, hemoglobin 8.9, platelet count 55,000. Chemistries for today are pending. IMPRESSION: 1. Neutropenic fever. 2. Electrolyte dysfunction. 3. Pancytopenia attributable to chemotherapeutic effect. 4. Metastatic ovarian cancer. 5. Type 2 diabetes mellitus. 6. Hypertension. PLAN: The patient was seen and examined at bedside this morning. General Surgery removed MediPort device yesterday and left upper extremity PICC line placed. Unfortunately, PICC line only infuses and does not aspirate blood adequately. The patient will need aggressive physical therapy and further time to recover. Again, disease progression is suggested on her most recent radiographs despite her current chemotherapeutic regimen and therefore if further therapy is contemplated, we will need to seek another agent. Perhaps one of the novel carb inhibitors. Agree with current medical management and we will continue to see the patient periodically during her stay.
[2018-12-11] MEDS: INSULIN ASPART 100 UNITS/ML 3 ML PEN SC SCH ×4 (09:55→20:58)
--- NOTE | 2018-12-11 10:48 | Infectious Disease Progress Nt ---
Date of Service December 11, 2018 Assessment & Plan (1) Bacteremia due to Klebsiella pneumoniae: Klebsiella bacteremia in the setting of indwelling a- port, now status post port removal. Patient to continue on IV ertapenem, likely ~ 1 more week. Will follow. Subjective Patient seen in follow-up for Klebsiella bacteremia. Now status post removal of port. Patient currently afebrile, tolerating antibiotic without apparent difficulty. Follow-up blood cultures no growth to date. Review of Systems All systems reviewed & are unremarkable except as noted in HPI & below Physical Exam Vital Signs (Past 24 Hours): Last Vital Signs Temp 36.8 C 12/11/18 08:49 Pulse 93 H 12/11/18 08:49 Resp 18 12/11/18 08:49 BP 103/72 12/11/18 08:49 Pulse Ox 98 12/11/18 08:49 Constitutional: WD/WN, vitals as above comfortable; no acute distress Eyes: PERRL, conjunctivae normal, anicteric sclerae ENMT: external ear and nose normal, oropharynx normal Ears: no external ear abnormality Nose: no external nose abnormality Neck: trachea midline, no thyromegaly neck nontender Respiratory: normal respiratory effort, lungs clear to auscultation normal percussion; no respiratory distress Cardiovascular: Rate/Rhythm: regular rate and regular rhythm Heart Sounds: normal S1 and normal S2; no gallop, no murmur and no cardiac rub Gastrointestinal (Abdomen): normal bowel sounds, soft, nontender, no hepatosplenomegaly Musculoskeletal: no cyanosis or clubbing, extremities motor strength 5/5 Head/Neck/Chest: normocephalic and head atraumatic Skin: no rashes, warm and dry no lesions Neurologic: moves all extremities and awake; no focal motor deficits Motor/Sensory: no sensory deficit Psychiatric: A+Ox3, euthymic affect Lymphatic: no cervical or axillary lymphadenopathy no inguinal lymphadenopathy Results & Data Laboratory Results BMP 12/11/18 07:54 Sodium 139 Potassium 4.1 Chloride 109 H Carbon Dioxide 22 BUN 9 Creatinine 0.72 Glucose 81 Calcium 8.9 Diagnostic Findings Microbiology 12/06/18 09:11 Blood Blood Culture - Preliminary No growth to date. 12/06/18 09:02 Blood Blood Culture - Preliminary No growth to date.
[2018-12-11] MEDS: PSYLLIUM 58.6% POWDER PACKET PO SCH (10:49)
--- NOTE | 2018-12-11 11:39 | Anesthesiology Progress Note ---
Date of Service December 11, 2018 Anesthesia Post Procedure Vital Signs Vital Signs: Temp Pulse Pulse Resp BP Pulse Ox 12/11/18 11:15 36.5 C 99 H 18 98/66 L 98 12/11/18 08:49 36.8 C 93 H 18 103/72 98 12/11/18 03:42 36.9 C 89 20 119/78 100 12/10/18 23:41 36.6 C 88 20 116/78 95 12/10/18 19:07 36.6 C 99 H 20 119/76 95 12/10/18 17:44 36.6 C 98 H 20 122/79 97 12/10/18 16:50 36.6 C 99 H 20 153/84 H 96 12/10/18 15:52 36.6 C 93 H 20 126/79 96 12/10/18 15:22 36.5 C 93 H 20 127/74 95 12/10/18 15:00 36.4 C L 93 H 18 131/85 95 12/10/18 14:31 36.9 C 90 18 118/79 93 12/10/18 14:15 36.2 C L 81 20 117/78 95 12/10/18 14:00 36.6 C 91 H 18 119/79 96 12/10/18 13:50 36.6 C 94 H 18 128/77 96 12/10/18 13:40 94 H 18 116/80 100 12/10/18 13:33 36.8 C 97 H 18 129/80 96 12/10/18 12:05 36.5 C 97 H 26 H 132/84 97 Notes Mental Status: alert / awake / arousable and participated in evaluation Patient Amnestic to Procedure: Yes Nausea / Vomiting: adequately controlled Pain: adequately controlled Airway Patency, RR, SpO2: stable & adequate BP & HR: stable & adequate Hydration State: stable & adequate Anesthetic Complications: no major complications apparent and Pt Satisfied with anesthetic care
--- NOTE | 2018-12-11 13:04 | Surgery Progress Note ---
Date of Service December 11, 2018 Assessment & Plan (1) Bacteremia due to Klebsiella pneumoniae: Status post port removal, doing well. Follow-up as needed PICC line in place Antibiotic per infectious disease Disposition per primary team Patient may shower, no activity restriction Surgery will sign off, call with questions or concerns Present on Admission?: Yes Subjective 68-year-old female POD #1 port removal for concern for infected port with Klebsiella bacteremia. Overall doing well, no pain, no complaints Physical Exam Vital Signs (Past 24 Hours): Last Vital Signs Temp 36.5 C 12/11/18 11:15 Pulse 99 H 12/11/18 11:15 Resp 18 12/11/18 11:15 BP 98/66 L 12/11/18 11:15 Pulse Ox 98 12/11/18 11:15 Constitutional: WD/WN, vitals as above Skin: Incision with Dermabond in place, no evidence of infection or seroma/hematoma.
[2018-12-11] MEDS: MAGNESIUM SULFATE / D5W 1 GM/100 ML BAG IV SCH ×2 (13:50→14:56)
[2018-12-11] MEDS: ERTAPENEM SODIUM 1,000 MG in SODIUM CHLORIDE 0.9% 50 ML IV SCH (16:24)
--- NOTE | 2018-12-11 22:20 | Hospitalist Progress Note ---
Date of Service December 11, 2018 Assessment & Plan (1) Febrile neutropenia: This chemotherapy associated febrile neutropenia. Resolved Gram-negative bacteremia (Klebsiella) likely from translocation from gut patient has been changed to ertapenem therapy infectious disease consult is considering removal of line, however the patient states she is in the past she is been very difficult to have PICC line placed and difficult to have her port placed. Dr. Bradshaw is her typical surgeon and likely can confer with him during the week to determine if she truly has a challenge to have a line placed. This may alter infectious disease plan and duration of intravenous antibiotic therapy diarrhea C. difficile test was performed and is negative The patient did receive Neupogen with good response of her bone marrow. 12/11 Patient has gRam negative bacteremia. Port was removed. Patient has an ultrasound guided IV site. Will need to complete 2 weeks of ertapenem. (2) Pancytopenia: cHemotherapy associated pancytopenia. Bone marrow rescue by Neupogen, platelet count is slowly improving: Appears to have resolved. will monitor. (3) Diabetes mellitus, type 2: Pharmacy managed diabetic protocol we will continue to hold her typical glimepiride metformin especially while having poor p.o. intake (4) Hypertension: Patient has some history of coronary disease she is typically on aspirin atorvastatin Coreg and Lasix plus lisinopril these will remain held and if we re-begin these medications possibly targeting Coreg Her BP is at goal. (5) Diarrhea: diarrhea resolved, with loperamide at max doser. likely related to chemotherapy continue to hydrate, will add antidiarrheals and fiber Pharmacy suggested to decrease dose as she was on max. Will try 12 mg daily. oN 12/11 Patient had a loose stool in AM. Will have patient return to 16 mg of immodium. Will continue to monitor. (6) DVT prophylaxis: Chemoprophylaxis is contraindicated with the patient's thrombocytopenia likely external device may promote bruising Spent 27 minutes in management of patient. Subjective Patient is seen in the afternoon. Patient reports feeling well. Patient denies any fever chills, nausea, vomtiing. Patient reports having liquid stool this AM. She is requesting to go back up on her immodium. No double vision blurry vision No problems with speech or swallowing No palpitations, chest pain or pressure No Wheezing or breathing issues some nonproductive coughing No abdominal pain nausea vomiting diarrhea changes in appetite or weight No burning urine urine frequency or changes in color No focal joint pain or muscle pain No focused back pain or numbness or loss of strength No changes in memory or confusion Physical Exam Vital Signs (Past 24 Hours): Last Vital Signs Temp 36.6 C 12/11/18 19:13 Pulse 92 H 12/11/18 19:13 Resp 18 12/11/18 19:13 BP 125/76 12/11/18 19:13 Pulse Ox 97 12/11/18 19:13 Physical Exam: The patient appeared chronically ill Vital signs as documented. Head exam is unremarkable. normocephalic, atraumatic, alopecia Oral mucous membranes: appear somewhat dry. Neck is without jugular venous distension, thyromegaly, or lymphademopathy Lungs are clear to auscultation and percussion. Cardiac exam reveals Rhythm is regular. First and second heart sounds normal. Abdominal exam reveals general mild diffuse tenderness no rebound no guarding, normal bowel sounds, no masses, no organomegaly Extremities are nonedematous and both pedal pulses are present Neurologic exam is A&Ox3, no focal deficits, strength is equal bilateral
[2018-12-12] MEDS: PANTOprazole 40 MG TAB PO SCH (08:51)
[2018-12-12] MEDS: ALUMINUM/MAGNESIUM SUSP 50 ML, DiphenhydrAMINE Syrup 125 MG, LIDOCAINE HCL 2% VISCOUS 4... PO SCH (08:51)
[2018-12-12] MEDS: LOPERAMIDE HCL 2 MG CAP PO SCH (08:51)
[2018-12-12] MEDS: INSULIN ASPART 100 UNITS/ML 3 ML PEN SC SCH (08:52)
--- NOTE | 2018-12-12 12:15 | Pharmacy Report ---
PHA: Glycemic Control AP - Date of Service December 12, 2018 - Assessment & Plan The patient is currently receiving 0 units of insulin per day. BSGs ranging 84 - 120 mg/dl over the past 24hrs. Diet advanced to Type 2 DM. Will not resume any oral medications from home at this time, as blood sugars are in range without any insulin. * Basal insulin: NONE * Correctional Insulin: Novolog Correction per scale ACHS Goal Range: Low 120 mg/dL - High 160 mg/dL Correction Factor: 30 mg/dL/unit * Prandial insulin: Per carb ratio of 1 unit per 10 grams CHO consumed BSGs continue to improve, no changes needed to inpatient regimen at this time. Pharmacy will continue to monitor patient daily and write orders per [facility] inpatient glycemic control protocol. Thanks. * Please note that the plan above was derived based on current level of insulin resistance and hospital stress. These recommendations are appropriate for inpatient admission only. Plan of care upon discharge will need to be reassessed to avoid potential outpatient hypo/hyperglycemia.
[2018-12-12] MEDS: ERTAPENEM SODIUM 1,000 MG in SODIUM CHLORIDE 0.9% 50 ML IV SCH (14:09)
--- NOTE | 2018-12-12 16:16 | Infectious Disease Progress Nt ---
Date of Service December 12, 2018 Assessment & Plan (1) Bacteremia due to Klebsiella pneumoniae: Klebsiella bacteremia in the setting of indwelling a- port, now status post port removal. Patient to continue on IV ertapenem, likely ~ 1 more week. Will follow. Subjective Patient seen in follow-up for Klebsiella bacteremia. Now status post removal of port. Patient currently afebrile, tolerating antibiotic without apparent difficulty. Follow-up blood cultures no growth to date. Cath tip culture no growth. Offers no new complaints. Physical Exam Vital Signs (Past 24 Hours): Last Vital Signs Temp 36.2 C L 12/12/18 14:21 Pulse 84 12/12/18 14:21 Resp 18 12/12/18 14:21 BP 116/77 12/12/18 14:21 Pulse Ox 95 12/12/18 14:21 Constitutional: WD/WN, vitals as above comfortable; no acute distress Eyes: PERRL, conjunctivae normal, anicteric sclerae ENMT: external ear and nose normal, oropharynx normal Ears: no external ear abnormality Nose: no external nose abnormality Neck: trachea midline, no thyromegaly neck nontender Respiratory: normal respiratory effort, lungs clear to auscultation normal percussion; no respiratory distress Cardiovascular: Rate/Rhythm: regular rate and regular rhythm Heart Sounds: normal S1 and normal S2; no gallop, no murmur and no cardiac rub Gastrointestinal (Abdomen): normal bowel sounds, soft, nontender, no hepatosplenomegaly Musculoskeletal: no cyanosis or clubbing, extremities motor strength 5/5 Head/Neck/Chest: normocephalic and head atraumatic Skin: no rashes, warm and dry no lesions Neurologic: moves all extremities and awake; no focal motor deficits Motor/Sensory: no sensory deficit Psychiatric: A+Ox3, euthymic affect Lymphatic: no cervical or axillary lymphadenopathy no inguinal lymphadenopathy Results & Data Laboratory Results Laboratory Results - last 48 hr 12/10/18 12/10/18 12/11/18 16:45 20:06 07:54 Sodium 139 Potassium 4.1 Chloride 109 H Carbon Dioxide 22 Anion Gap 9.0 BUN 9 Creatinine 0.72 Est Cr Clr Drug Dosing 80.3 Est GFR ( Amer) 99.7 Est GFR (Non-Af Amer) 86.1 BUN/Creatinine Ratio 13.0 Glucose 81 POC Glucose 74 103 H Calcium 8.9 Phosphorus 3.6 Magnesium 1.5 L 12/11/18 12/11/18 12/11/18 07:54 11:02 16:44 Sodium Potassium Chloride Carbon Dioxide Anion Gap BUN Creatinine Est Cr Clr Drug Dosing Est GFR ( Amer) Est GFR (Non-Af Amer) BUN/Creatinine Ratio Glucose POC Glucose 84 93 120 H Calcium Phosphorus Magnesium 12/11/18 12/12/18 12/12/18 20:19 07:44 11:42 Sodium Potassium Chloride Carbon Dioxide Anion Gap BUN Creatinine Est Cr Clr Drug Dosing Est GFR ( Amer) Est GFR (Non-Af Amer) BUN/Creatinine Ratio Glucose POC Glucose 110 H 102 H 118 H Calcium Phosphorus Magnesium Diagnostic Findings Microbiology 12/10/18 13:27 Catheter Tip, A-port Catheter Tip Culture - Final No growth 12/06/18 09:11 Blood Blood Culture - Final No growth 12/06/18 09:02 Blood Blood Culture - Final No growth
--- NOTE | 2018-12-19 07:43 | Discharge Summary ---
Date of Service December 12, 2018 Admission HPI Per Admitting Provider The patient is a 68 yo woman, transferred from [facility] due to febrile neurolpenia. She has been undergoing chemo for metastatic ovarian cancer. She was diagnosed 13 years ago, and was cancer free for 10 years when she developed a lump in her neck and was diagnosed with metastatic disease. Her oncologist is Dr. Alfredo. Her last round of chem was quite debilitating with impaired appetite, diarrhea, and ultimatley AMS and febrile neutropenia. She describes having been sick since August of 2018 and has become frustrated and questioning whether or not her disease is treatable. 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 She is also worried about her course of treatment in that she has always had small veins that are difficult to catherize, and has just had to have a PICC inserted because her port is infected. This too was painful causing her to worry about the possibility she will have to have the painful procedure every month. She admits that there are times she wants to give up, but denies any active SI. Her sleep is generally OK because at home she uses medical marijuana. Appetite is poor and has to force herself to eat, and is avoidant of eating because it stimulates diarrhea. She is not a chronically anxious person, but as above, her anxiety is focused on how her will survive without her. She denies ever having had a panic attack, and denies any hallucinatory experiences. Principal Diagnosis febrile neutropenia Discharge Exam The patient appeared chronically ill Vital signs as documented. Head exam is unremarkable. normocephalic, atraumatic, alopecia Oral mucous membranes: appear somewhat dry. Neck is without jugular venous distension, thyromegaly, or lymphademopathy Lungs are clear to auscultation and percussion. Cardiac exam reveals Rhythm is regular. First and second heart sounds normal. Abdominal exam reveals general mild diffuse tenderness no rebound no guarding, normal bowel sounds, no masses, no organomegaly Extremities are nonedematous and both pedal pulses are present Neurologic exam is A&Ox3, no focal deficits, strength is equal bilateral Discharge Data Allergies Allergy/AdvReac Type Severity Reaction Status Date / Time cefaclor AdvReac Mild Yeast Verified 07/16/18 05:59 Infection pioglitazone AdvReac Mild Leg Verified 07/16/18 05:59 Swelling rosiglitazone AdvReac Mild Leg Verified 07/16/18 05:59 Swelling shrimp AdvReac Mild NAUSEA/VOMI Verified 07/16/18 05:59 TING Consultations 12/04/18 10:23 Consult Case Management - Discharge Planning Routine 12/04/18 10:24 Consult Fuselage Framer Routine 12/04/18 11:43 Consult Oncology Routine 12/04/18 12:05 Consult Hematology Routine 12/06/18 11:59 Consult Patient Rep / Service Excellence [Consult Patient Services] Routine 12/06/18 13:18 Consult Infectious Diseases Routine 12/07/18 14:09 Consult Case Management - Discharge Planning Routine 12/08/18 10:18 Consult General Surgery Routine 12/08/18 10:42 Consult Psychiatry Routine Procedures Performed Operation Date: 12/10/18 12:20 Actual Procedures p Infusaport Removal(Left) - Jose Carlos Bradshaw DO, FACS Hospital Course (1) Febrile neutropenia: This chemotherapy associated febrile neutropenia. Resolved Gram-negative bacteremia (Klebsiella) likely from translocation from gut patient has been changed to ertapenem therapy infectious disease consult is considering removal of line, however the patient states she is in the past she is been very difficult to have PICC line placed and difficult to have her port placed. Dr. Bradshaw is her typical surgeon and likely can confer with him during the week to determine if she truly has a challenge to have a line placed. This may alter infectious disease plan and duration of intravenous antibiotic therapy diarrhea C. difficile test was performed and is negative The patient did receive Neupogen with good response of her bone marrow. 12/12 Patient has gram negative bacteremia. Port was removed during hospital stay Patient has an ultrasound guided IV peripheral site. Will need to complete 2 weeks of ertapenem. Patient will be discharged today (2) Pancytopenia: cHemotherapy associated pancytopenia. Bone marrow rescue by Neupogen, platelet count is slowly improving: Appears to have resolved. (3) Diabetes mellitus, type 2: Pharmacy managed diabetic protocol we will continue to hold her typical glimepiride metformin especially while having poor p.o. intake (4) Hypertension: Patient has some history of coronary disease she is typically on aspirin atorvastatin Coreg and Lasix plus lisinopril these will remain held and if we re-begin these medications possibly targeting Coreg Her BP is at goal. (5) Diarrhea: diarrhea resolved, with loperamide at max doser. likely related to chemotherapy continue to hydrate, will add antidiarrheals and fiber Pharmacy suggested to decrease dose as she was on max. Will try 12 mg daily. oN 12/12 Appears to be controlled on max dose of loperamide (16mg a day) (6) DVT prophylaxis: Chemoprophylaxis is contraindicated with the patient's thrombocytopenia likely external device may promote bruising Total Time Total Time Spent Total Time Spent (In Minutes): 31 Total Time Includes: Examination of the Patient, Discharge Planning and Medication Reconciliation Discharge Plan Discharge Items Patient Disposition: Transfer Snf Fac Reason For Visit: NEUTROPENIC FEVER Discharge Diagnosis: Bacteremia Discharge Goals: Decrease discomfort Activity: Resume your previous activity Non-emergency contact: Primary Care Provider Call non-emergency contact if: you have any medication questions Follow-up/Referrals: Rell Edmonds DO [Primary Care Provider] - Diet: Carb Consistent or DM2 Addtl Provider Instructions: Followup with Dr. Alfredo in 2-4 weeks to discuss future treatment plan. You will continue immodium for diarrhea. You will continue antibitoics for 7 more days. Check BMP in 1 week to monitor renal function and potassium. F/U with PCP in 1-2 weeks. Prescriptions: New loperamide 2 mg Capsule 4 mg PO QID Qty: 120 RF: 0 ertapenem 1 gram recon soln 1 gm IV DAILY Qty: 7 RF: 0 potassium chloride 10 mEq capsule, extended release 10 meq PO BID Qty: 60 RF: 0 prochlorperazine maleate [Compazine] 5 mg tablet 5 mg PO Q8H PRN (Reason: anxiety/nausea/dizziness) Qty: 10 RF: 0 Continued atorvastatin 20 mg Tablet 20 mg PO HS RF: 0 omeprazole 40 mg Capsule,Delayed Release(Dr/Ec) 40 mg PO QPM RF: 0 aspirin 81 mg Tablet,Delayed Release (Dr/Ec) 81 mg PO QAM RF: 0 glimepiride 2 mg Tablet 2 mg PO HS RF: 0 carvedilol 3.125 mg Tablet 3.125 mg PO BID RF: 0 metformin 1,000 mg Tablet 1,000 mg PO BID RF: 0 furosemide 20 mg Tablet 40 mg PO UD RF: 0 cholecalciferol (vitamin D3) [Vitamin D3] 1,000 unit Capsule 1,000 unit PO QPM RF: 0 calcium carbonate-vitamin D3 [Os-Ilia 500 + D3] 500 mg(1,250mg) -200 unit Tablet 1 tab PO QAM RF: 0 estradiol [Vagifem] 10 mcg Tablet 10 mcg VAGINAL 2XWK RF: 0 Vitron-C 65 mg iron- 125 mg Tablet,Delayed Release (Dr/Ec) 1 tab PO DAILY RF: 0 Probiotic 3 billion cell Capsule 3,000 mmu cells PO DAILY RF: 0 [place] 3-6-9 1,200 mg Capsule 1 cap PO QAM RF: 0 Tylenol capsule See Rx Instructions .ROUTE .COMPLEX PRN (Reason: Pain, Mild) RF: 0 Discontinued lisinopril 10 mg Tablet 10 mg PO QAM RF: 0 Stand-Alone Forms: [facility] Discharge Orders: Discharge Order (Routine); Ordered 12/12/18 Ordered By: Carlos Wall Skilled Items Patient informed of condition?: Yes DNR: No Discharge Level of Care: Skilled Communicable Disease: No Discharge Prognosis: Improving Admission Data Admit Date/Time: 12/04/18 08:53 Attending Provider: Carlso Wall Admit Provider: Ganesh Daniels Primary Care Provider: Rell Edmonds Other Providers: Fernando Alfredo V ; Jose Carlos Bradshaw ; Cassidy Roblero ; Ruddy Parikh ; Moni Driver Service: Medical Other Interventions: Discharge Summary Assessment (RN) Last Done: 12/12/18 14:21 DC Date/Time DO NOT enter until pt leaves facility: 12/12/18 16:15
== END 2018-12-12 16:15 | DRG 315 ==
LOC: SUATTDRO 08:53 → 1E 08:53 → 4E 12-05 13:52